=== PATIENT | female | born 1950 | race Native Hawaiian/Other Pacific Islander ===

== ENCOUNTER 2022-03-01 09:50 | Outpatient (CLI) | payer MEDICARE, MEDICAID, SELFPAY ==
--- NOTE | 2022-03-01 10:15 | CRLHL7_ITS ---
For Patients: As a result of the Century Cures Act, medical imaging exams and procedure reports are released immediately into your electronic medical record. You may view this report before your referring provider. If you have questions, please contact your health care provider. Technique: Double-contrast esophagram performed after the uneventful administration of effervescent crystals and thick barium followed by thin barium. Fluoroscopy time 1 minutes 11 seconds. Indication: Dysphagia Comparison: 12/29/2020 Findings: Postoperative changes of hiatal hernia repair and Robson fundoplication again noted. Swallowing mechanism is normal. Normal esophageal mucosal pattern. No evidence of achalasia. There is a persistent outpouching of the proximal stomach adjacent to the GE junction measuring 2.0 x 2.5 cm. This is not significantly changed from the prior study. Mild esophageal dysmotility and moderate gastroesophageal reflux. Impression: Persistent hernia adjacent to the GE junction without obstruction. Moderate spontaneous reflux and mildly decreased esophageal motility. Dictated by Alex Martinez MD @ 03/01/2022 11:08:18 AM (Electronically Signed)
== END 2022-03-01 09:51 | disposition home or self-care (01) ==
LOC: RAD 09:52
PROVIDERS: PCP Physician Assistant; Visit Provider Specialist
DX: R13.10 Dysphagia, unspecified (principal); K44.9 Diaphragmatic hernia without obstruction or gangrene; K21.9 Gastro-esophageal reflux disease without esophagitis; R11.10 Vomiting, unspecified; Z98.890 Other specified postprocedural states
CPT/HCPCS: 74221

== ENCOUNTER 2023-07-09 09:41 | Outpatient (CLI) | payer MEDICARE, MEDICAID, SELFPAY ==
--- NOTE | 2023-07-09 10:00 | CRLHL7_ITS ---
For Patients: As a result of the Century Cures Act, medical imaging exams and procedure reports are released immediately into your electronic medical record. You may view this report before your referring provider. If you have questions, please contact your health care provider. INDICATION: Neck pain. TECHNIQUE: Noncontrast axial CT of the cervical spine with coronal and sagittal reformats are provided. COMPARISON: Correlated with cervical spine radiographs dated 10/06/2018. FINDINGS: Postsurgical changes of C6-C7 anterior hardware fusion and intervertebral disc spacer placement. Hardware appears intact without evidence of loosening or failure. Straightening of the normal cervical lordosis. Posterior aspects of the vertebral bodies are aligned. No lytic or blastic lesion is identified. The paraspinal soft tissues are unremarkable. Evaluation of the individual levels demonstrates: C2-C3: No significant spinal canal or neural foraminal stenosis. C3-C4: No significant spinal canal or right neural foraminal narrowing. Mild right and moderate-severe left neural foraminal narrowing resulting from combined uncovertebral and facet joint hypertrophy. C4-C5: No significant spinal canal stenosis. Mild bilateral neural foraminal narrowing resulting predominantly from uncovertebral spurring. C5-C6: No significant spinal canal stenosis. Mild bilateral neural foraminal narrowing resulting predominantly from uncovertebral spurring. C6-C7 and C7-T1: No significant spinal canal or neural foraminal stenosis. IMPRESSION: 1. Postsurgical changes of C6-C7 anterior hardware fusion and intervertebral disc spacer placement. Hardware appears intact without evidence of loosening or failure. 2. No high-grade spinal canal stenosis. 3. At C3-C4, moderate-severe left neural foraminal narrowing. Please note that all CT scans at this facility use dose modulation, iterative reconstruction, and/or weight-based dosing when appropriate to reduce radiation dose to as low as reasonably achievable. Dictated by Srini Malik MD @ 07/09/2023 1:56:06 PM (Electronically Signed)
--- NOTE | 2023-07-09 10:30 | CRLHL7_ITS ---
For Patients: As a result of the Century Cures Act, medical imaging exams and procedure reports are released immediately into your electronic medical record. You may view this report before your referring provider. If you have questions, please contact your health care provider. Indication: Cervicalgia TECHNIQUE: Cervical spine with flexion and extension 4 view Comparison: December 26, 2021 Findings: Bones: Alignment is normal. No sign of abnormal motion on flexion and extension views. No fractures or significant bone lesions. Joints: Unremarkable interbody and anterior hardware fusion of C6-7. Otherwise unremarkable. Soft tissues: Unremarkable. Impression: Unremarkable cervical spine including hardware fusion of C6-7. No new or specific finding to explain neck pain. Dictated by Armando Hairston MD @ 07/10/2023 2:49:07 PM (Electronically Signed)
== END 2023-07-09 09:42 | disposition home or self-care (01) ==
PROVIDERS: PCP Physician Assistant; Visit Provider Orthopaedic Surgery Orthopaedic Surgery of the Spine
DX: M54.2 Cervicalgia (principal); M50.21 Other cervical disc displacement, high cervical region
CPT/HCPCS: 72050; 72125

== ENCOUNTER 2023-10-22 12:01 | Inpatient (IN) | payer MEDICARE, MEDICAID, SELFPAY ==
[2023-10-22] VITALS (29 sets, daily range): BP systolic 125–194; BP diastolic 77–125; PULSE 85–133; RESP 20–31; TEMP 35.8–36.6; O2SAT 90–98; BMI 31.9; BMI 29.5
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
--- NOTE | 2023-10-22 12:41 | CT_ITS ---
Patient: JOSE JERRY Facility:?[facility] Patient ID:?[id number] Site Patient ID:?[id number]. Site :?[id number] Study:?CT-Chest PE 95CC ISOVUE 370-10/22/2023 2:51:12 PM Ordering Physician:?DR. ESTEVES Final Report: Indication: POST OP C SPINE SURG. 09/27/23. DYSPNEA, MILD HYPOXIA Technique: CTA chest, pulmonary embolism protocol, utilizing 95 mL Isovue 370 Comparison: None Findings: No appreciable thyroid nodules. No pathologically enlarged lymph nodes throughout the thorax. The heart is normal in size without significant pericardial effusion. Right ventricular enlargement. LAD calcifications/stenting. The thoracic aorta and pulmonary artery are normal in caliber. Extensive pulmonary emboli to include the distal right pulmonary artery and segmental arteries of the right upper, middle, and lower lobes. Additional pulmonary emboli involving the distal left pulmonary artery and the segmental arteries of the left upper and left lower lobes. No focal airspace consolidation, pleural effusion, or pneumothorax. Faint mosaic attenuation of the lung parenchyma which can be seen with air trapping. No suspicious pulmonary nodules or masses. The airways are patent. The visualized upper abdomen is without acute process. Small to moderate hiatal hernia. Partially visualized lower cervical ACDF hardware. Otherwise, the soft tissues and osseous structures are unremarkable. Impression: 1. Multiple bilateral pulmonary emboli to include the distal left and right pulmonary arteries and segmental arteries of the bilateral lungs. 2. Right ventricular enlargement, suggestive of right heart strain. Findings were discussed with Dr. Esteves by Dr. Iqbal at 3:20 p.m. central standard time on 10/22/2023 Please note that all CT scans at this facility use dose modulation, iterative reconstruction, and/or weight-based dosing when appropriate to reduce radiation dose to as low as reasonably achievable. Dictated by Dayday Iqbal MD @ 10/22/2023 3:22:44 PM Signed by:?Dayday Iqbal MD @10/22/2023 3:22:44 PM (Electronic Signature)
[2023-10-22] MEDS: diphenhydrAMINE 50 MG/ML inj IVP (13:01)
[2023-10-22 13:11] LABS: HCO3 VBG 20 mmol/L (21-28); PCO2 VBG 27 mmHG (40-50); PO2 VBG 57.2 mmHG (25-47); pH VBG 7.478 (7.32-7.43)
[2023-10-22 13:12] LABS: Basophils Absolute Auto 0.01 K/uL (0.00-0.30); Basophils Percent Auto 0.1 % (0.0-3.0); Eosinophils Absolute Auto 0.08 K/uL (0.00-0.50); Hemoglobin* 13.1 gm/dL (12.0-16.0); Immature Granulocytes Abs Auto 0.03 K/uL (0.00-0.30); Immature Granulocytes Pct Auto 0.4 %; Lymphocytes Absolute Auto 1.65 K/uL (0.90-2.90); Lymphocytes Percent Auto 21.3 % (20-44); Mean Corpuscular HGB Conc 33 gm/dL (32-36); Mean Corpuscular Hemoglobin 31 pg (26-34); Mean Corpuscular Volume 94 fL (80-100); Monocytes Percent Auto 7.3 % (0.0-11.0); Neutrophils Absolute Auto 5.42 K/uL (1.7-7.0); Neutrophils Percent Auto 69.9 % (42.0-72.0); Platelet Count* 297 K/uL (140-440); RDW Coefficient of Variation % 13.2 % (11.5-15.5); Red Blood Count 4.26 m/uL (4.00-5.20); White Blood Count* 7.76 K/uL (4.50-11.00)
[2023-10-22] MEDS: HYDROCORTISONE SOD SUCCINATE 50 MG/ML inj 200 MG IVP (13:13)
[2023-10-22 13:15] LABS: Slide Review Reflex No
[2023-10-22 13:28] LABS: Troponin, Point-of-Care* 0.14 ng/ml (0.01-0.04)
[2023-10-22 13:28] LABS: Chloride* 109 mmol/L (96-114); Potassium* 4.3 mmol/L (3.6-5.1); Sodium* 137 mmol/L (135-149)
[2023-10-22] MEDS: 0.9 % SODIUM CHLORIDE 500 ML 500 ML IV (13:28)
[2023-10-22] MEDS: TRAMADOL HCL 50 MG TABLET 100 MG PO (13:28)
[2023-10-22 13:31] LABS: Creatinine* 0.6 mg/dL (0.5-1.5); Est. Creatinine Clearance* 42.68; Estimated Glomerular Filt Rate 96 ml/min
[2023-10-22 13:32] LABS: Anion Gap 9 mEq/L (7-15); Blood Urea Nitrogen* 14 mg/dL (7-30); Calcium* 9.8 mg/dL (8.4-10.6); Carbon Dioxide* 19 mmol/L (20-32); Glucose* 159 mg/dL (60-115)
[2023-10-22 13:46] LABS: D Dimer Quantitative* 5.39 ug/ml (0.00-0.50); NT Pro B Type NatriureticPept* 5370 pg/mL
[2023-10-22 13:47] LABS: Troponin I* 0.13 ng/mL (0.01-0.04)
[2023-10-22 14:00] LABS: SARS PCR* Negative SARS-CoV-2 (Negative)
[2023-10-22 14:01] LABS: PCR FLU A Negative PCR FLU A (Negative); PCR FLU B Negative PCR FLU B (Negative); PCR RSV Negative PCR RSV (Negative)
[2023-10-22 15:23] LABS: Troponin, Point-of-Care* 0.14 ng/ml (0.01-0.04)
--- NOTE | 2023-10-22 16:50 | P.IMHP_ITS ---
Hospitalist- H&P: HPI History of Present Illness Date Seen: 10/22/23 Chief complaint: trouble breathing Narrative: Mally Foster is a 73 year old female who presented to the ED with a 3 day history of dyspnea on exertion. She recently had surgery; an anterior cervical decompression/fusion of C3-C6 on 09/27/23 at [facility]. She had been doing well until this past weekend, when she felt more tired than usual with dyspnea with any type of activity, no cough. ER Course and findings: - elevated d-dimer, CTA revelaed multiple B PEs including distal L/R pulmonary arteries and bilateral segmental arteries with R ventricular enlargement - tachycardia on arrival (120s), HR improved ot 80s upon arrival to the floor - no hypotension, + tachycardia - bedside TTE prior to admission revealed elevated R heart pressures, dilated IVC, mildly decreased RV function, formal Cardiology read pending Histories updated below. PCP is Maryan Gallagher at the [facility]. Review of Systems Status of ROS: Reports: 10 or more systems reviewed and unremarkable except as noted in History and below Narrative: - known hiatal hernia recurrence (s/p Robson x2), symptomatic GERD - no vomiting or melena, + constipation since surgery - no chest pain or palpitations - large area of matted hair postoperatively, would prefer to have this conditioned/combed out, rather than cut [facility] Medical History (Updated 10/22/23 @ 19:09 by Bisi Haas MD) Pre-diabetes ?R73.03 - Prediabetes (ICD-10) Thoracic outlet syndrome ?G54.0 - Brachial plexus disorders (ICD-10) Degenerative disc disease SHARDA (obstructive sleep apnea) ?G47.33 - Obstructive sleep apnea (adult) (pediatric) (ICD-10) 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 ?M23.304 - Other meniscus derangements, unspecified medial meniscus, left knee (ICD-10) Osteoarthritis of knees, bilateral ?M17.0 - Bilateral primary osteoarthritis of knee (ICD-10) Hiatal hernia ?K44.9 - Diaphragmatic hernia without obstruction or gangrene (ICD-10) Hypertension ?I10 - Essential (primary) hypertension (ICD-10) High cholesterol ?E78.00 - Pure hypercholesterolemia, unspecified (ICD-10) Surgical History (Updated 10/22/23 @ 16:15 by Bisi Haas MD) Status post Robson fundoplication ?Z98.890 - Other specified postprocedural states (ICD-10) S/P cholecystectomy ?Z90.49 - Acquired absence of other specified parts of digestive tract (ICD- 10) H/O hernia repair ?Z98.890 - Other specified postprocedural states (ICD-10) ?Z87.19 - Personal history of other diseases of the digestive system (ICD-10) H/O heart artery stent ?Z95.5 - Presence of coronary angioplasty implant and graft (ICD-10) Social History (Updated 10/22/23 @ 19:11 by Bisi Haas MD) Narrative: Lives in [place]. Son Severiano would be MDM if needed. Nonsmoker, rare ETOH. Requests Full Code status for one try, does not desire prolonged resuscitation attempts. What is your current living situation?: I presently have a place to live Problems where you live: no known problems Problems where you live details: N/A In the past 12 months, utilities in danger of being shut off: no In past 12 months, lack of transportation kept you from medical appts, meetings, work, or getting things needed for daily living: no In the past 12 mos, have been you worried that your food would run out before yo u had money to buy more?: sometimes true In the past 12 mos, the food you bought just didn't last and you didn't have money to buy more?: sometimes true Highest level of school completed/degree received: 9th grade Smoking Status: Never smoker Do you use any of these nicotine containing products: None How often do you have a drink containing alcohol: never AUDIT-C Alcohol total score: 0 Non-prescribed substance use: denies use Caffeine: Yes (1-2 weekly) How often does anyone, including family, friends and others, physically hurt you : never How often does anyone, including family, friends and others, insult or talk down to you: never How often does anyone, including family, friends and others, threaten you with harm: never How often does anyone, including family, friends and others, scream or curse at you: never service: No Meds Home Medications and Allergies Home Medications Medication Instructions Recorded Confirmed Type losartan 100 mg tablet 100 mg PO DAILY 05/04/22 10/22/23 History nitroglycerin 0.4 mg sublingual 0.4 mg sublingual Q5M PRN chest 05/04/22 10/22/23 History tablet pain pantoprazole 40 mg tablet,delayed 40 mg PO DAILY PRN 05/04/22 10/22/23 History release simvastatin 20 mg tablet 20 mg PO HS 05/04/22 10/22/23 History tramadol 50 mg tablet 50 mg PO Q6H PRN 07/17/22 10/22/23 History acetaminophen 500 mg tablet 500 - 1,000 mg PO Q6H PRN 10/22/23 10/22/23 History albuterol sulfate 90 mcg/actuation 1 - 2 puff inhalation Q4H PRN 10/22/23 10/22/23 History aerosol inhaler (Ventolin HFA) wheezing furosemide 20 mg tablet 20 mg PO DAILY PRN edema 10/22/23 10/22/23 History hydrocodone 5 mg-acetaminophen 325 1 tab PO BID PRN severe pain 10/22/23 10/22/23 History mg tablet Allergies Allergy/AdvReac Type Severity Reaction Status Date / Time atorvastatin Allergy Verified 10/22/23 14:51 Iodinated Contrast Media Allergy Verified 10/22/23 14:51 isosorbide Allergy Verified 10/22/23 14:51 lisinopril Allergy Verified 10/22/23 14:51 Exam Narrative: Exam Narrative: GEN: Alert, 4-5 word dyspnea, nontoxic HEENT: Normal external ears, EOMIs bilaterally, no scleral icterus CV: Sinus tachycardia, no concerning murmurs R: Intermittent tachypnea while talking, no hypoxia. LCTA bilaterally without concerning wheezing, air movement adequate Ext: wwp, no concerning edema Skin: No concerning skin lesions or rashes on exposed skin Neuro: No focal deficits, no resting tremor, gait not observed Psych: Appropriate Const: Vital Signs, click to edit/add: Vital Signs - 24 hr 10/22/23 12:04 10/22/23 12:16 10/22/23 12:17 Temperature 96.9 F L Pulse Rate 121 H 122 H Pulse Rate [Pulse Oximeter] 123 H Respiratory Rate 28 H Blood Pressure 142/92 H Blood Pressure [Ri ght Upper Arm] 131/87 Pulse Oximetry 96 94 92 Oxygen Delivery Me thod Room Air Oxygen Flow Rate 10/22/23 12:30 10/22/23 13:05 10/22/23 13:15 Temperature Pulse Rate 123 H 129 H 123 H Pulse Rate [Pulse Oximeter] Respiratory Rate Blood Pressure Blood Pressure [Ri ght Upper Arm] Pulse Oximetry 94 93 90 Oxygen Delivery Me thod Oxygen Flow Rate 10/22/23 13:30 10/22/23 13:32 10/22/23 13:42 Temperature Pulse Rate 122 H 122 H Pulse Rate [Pulse Oximeter] Respiratory Rate Blood Pressure 132/98 H Blood Pressure [Ri ght Upper Arm] Pulse Oximetry 91 95 94 Oxygen Delivery Me thod Nasal Cannula Nasal Cannula Nasal Cannula Oxygen Flow Rate 0.5 0.5 0.5 10/22/23 13:45 10/22/23 14:00 10/22/23 14:02 Temperature Pulse Rate 117 H 118 H 116 H Pulse Rate [Pulse Oximeter] Respiratory Rate Blood Pressure 130/99 H Blood Pressure [Ri ght Upper Arm] Pulse Oximetry 94 94 95 Oxygen Delivery Me thod Nasal Cannula Nasal Cannula Nasal Cannula Oxygen Flow Rate 0.5 0.5 0.5 10/22/23 14:15 10/22/23 14:30 10/22/23 14:32 Temperature Pulse Rate 127 H 118 H Pulse Rate [Pulse Oximeter] Respiratory Rate 27 H Blood Pressure 133/88 Blood Pressure [Ri ght Upper Arm] Pulse Oximetry 96 95 Oxygen Delivery Me thod Nasal Cannula Nasal Cannula Nasal Cannula Oxygen Flow Rate 0.5 0.5 0.5 10/22/23 14:45 10/22/23 15:00 10/22/23 15:15 Temperature Pulse Rate 133 H 121 H 121 H Pulse Rate [Pulse Oximeter] Respiratory Rate 26 H 24 Blood Pressure Blood Pressure [Ri ght Upper Arm] Pulse Oximetry 94 94 94 Oxygen Delivery Me thod Nasal Cannula Nasal Cannula Nasal Cannula Oxygen Flow Rate 0.5 1.0 1.0 10/22/23 15:30 10/22/23 15:32 10/22/23 15:45 Temperature Pulse Rate 120 H 121 H 119 H Pulse Rate [Pulse Oximeter] Respiratory Rate 31 H 27 H 25 H Blood Pressure 126/100 H Blood Pressure [Ri ght Upper Arm] Pulse Oximetry 96 95 94 Oxygen Delivery Me thod Nasal Cannula Nasal Cannula Nasal Cannula Oxygen Flow Rate 1 1 1 10/22/23 16:00 10/22/23 16:07 Temperature Pulse Rate 118 H Pulse Rate [Pulse Oximeter] 85 Respiratory Rate 28 H 20 Blood Pressure Blood Pressure [Ri ght Upper Arm] 194/125 H Pulse Oximetry 94 98 Oxygen Delivery Me thod Nasal Cannula Room Air Oxygen Flow Rate 1 Hospitalist - H&P: Result Labs Labs: Short CBC 10/22/23 Range/Units 13:00 WBC 7.76 (4.50-11.00) K/uL Hgb 13.1 (12.0-16.0) gm/dL Hct 40.0 (33.0-51.0) % Plt Count 297 (140-440) K/uL BMP 10/22/23 13:00 Sodium 137 Potassium 4.3 Chloride 109 Carbon Dioxide 19 L BUN 14 Creatinine 0.6 Glucose 159 H Calcium 9.8 Cardiac Enzymes 10/22/23 Range/Units 13:00 Troponin I 0.13 H* (0.01-0.04) ng/mL Assessment and Plan Assessment and plan (1) Pulmonary emboli: Problem comment: - bilateral, noted on CT 10/21 - + RV enlargement on CTA and TTE with mildly decreased RV function, + tachycardia (appears to have mild dehydration as well), no hypotension - reviewed with Dr. Bob at [facility]; no acute intervention or transfer needed at this time, but will admit to CCU on heparin GTT - formal TTE results pending Status: Acute (2) Acute respiratory failure with hypoxia: Problem comment: - required low dose supplemental oxygen in ED, resolved by arrival to the floor - close monitoring, continue supplemental oxygen as needed Status: Acute (3) Elevated troponin: Problem comment: - likely demand ischemia from PEs/tachycardia, follow troponin to peak - await formal TTE results Status: Acute (4) Hypertension: Problem comment: - continue home Losartan dosing, monitor closely and avoid hypotension Status: Acute Plan - per above - kamini Severiano updated by phone, questions answered
[2023-10-22] MEDS: 0.9 % SODIUM CHLORIDE 1000 ml 1,000 ML 500 ML IV (18:20)
[2023-10-22] MEDS: ACETAMINOPHEN 325 MG TABLET 975 MG PO (18:20)
[2023-10-22] MEDS: HEPARIN 25,000 UNIT/500 ML BAG 27 UNIT IV (18:28)
[2023-10-22] MEDS: HEPARIN 5,000 UNIT/0.5 ML INJ 6500 UNIT IVP (18:29)
[2023-10-22 18:40] LABS: INR 1.12 (0.91-1.10); Partial Thromboplastin Time* 28 Seconds (23-33); Prothrombin Time 15.1 Seconds
--- NOTE | 2023-10-22 19:49 | PC.NURSE ---
End of shift-- Very pleasant and cooperative patient arrived from ED via cart at approximately 1645. Pt hypertensive, tachycardic and tachypneic but stable. Afebrile. SPO2 92-97% on RA. She denied nausea and tolerated a regular diet without difficulty. She was up to BR with SBA and tolerated it fair. Pt did become very SOB with exertion and RR increased to 30s but she did recover fairly quickly. Pt underwent echo at bedside upon arrival and tolerated it well. Report to RAVI Carroll.
[2023-10-22] MEDS: 0.9 % SODIUM CHLORIDE 1000 ml 1,000 ML 125 ML IV (20:10)
[2023-10-22] MEDS: SIMVASTATIN 20 MG TABLET PO (21:55)
[2023-10-22] MEDS: TRAMADOL HCL 50 MG TABLET PO (23:00)
[2023-10-23] VITALS (9 sets, daily range): BP systolic 121–146; BP diastolic 73–90; PULSE 87–108; RESP 16–26; TEMP 35.9–36.6; O2SAT 94–96
[2023-10-23] MEDS: LORazepam 0.5 MG TABLET PO (00:57)
[2023-10-23 01:21] LABS: Partial Thromboplastin Time* > 180 Seconds (23-33)
--- NOTE | 2023-10-23 01:58 | PC.NURSE ---
Received critical lab >180 PTT. Alexis THOMAS ([facility]) updated. Verbal orders received to follow Heparin protocol and consult with remote pharmacy regarding the PTT redraw time. Remote pharmacy consulted. Redraw time confirmed to be 6 hours after restarting Heparin drip. New rate confirmed to be 1125 units/hour.
[2023-10-23] MEDS: 0.9 % SODIUM CHLORIDE 1000 ml 1,000 ML 125 ML IV ×2 (03:46→11:40)
--- NOTE | 2023-10-23 05:57 | PC.NURSE ---
[id number]: Patient pleasant and cooperative. A&Ox3. A1/walker. Marked SOB w/activity. HR started in the 120's and decreased to the 90's mid-shift. O2 sats >90% RA. Rates pain 5-9/10 on neck. PRN medications administered for relief. Steri strips to L. anterior neck C/D/I. 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
[2023-10-23 06:22] LABS: HCO3 VBG 21 mmol/L (21-28); PCO2 VBG 30 mmHG (40-50); PO2 VBG 50.5 mmHG (25-47); pH VBG 7.453 (7.32-7.43)
[2023-10-23 06:28] LABS: Basophils Absolute Auto 0.01 K/uL (0.00-0.30); Basophils Percent Auto 0.1 % (0.0-3.0); Eosinophils Absolute Auto 0.01 K/uL (0.00-0.50); Eosinophils Percent Auto 0.1 % (0.0-7.0); Hematocrit 33.1 % (33.0-51.0); Hemoglobin* 10.6 gm/dL (12.0-16.0); Immature Granulocytes Abs Auto 0.02 K/uL (0.00-0.30); Immature Granulocytes Pct Auto 0.3 %; Lymphocytes Absolute Auto 1.96 K/uL (0.90-2.90); Lymphocytes Percent Auto 25.7 % (20-44); Mean Corpuscular HGB Conc 32 gm/dL (32-36); Mean Corpuscular Hemoglobin 31 pg (26-34); Mean Corpuscular Volume 96 fL (80-100); Monocytes Percent Auto 8.5 % (0.0-11.0); Neutrophils Absolute Auto 4.99 K/uL (1.7-7.0); Neutrophils Percent Auto 65.3 % (42.0-72.0); Platelet Count* 236 K/uL (140-440); RDW Coefficient of Variation % 13.6 % (11.5-15.5); Red Blood Count 3.46 m/uL (4.00-5.20); White Blood Count* 7.64 K/uL (4.50-11.00)
[2023-10-23 06:31] LABS: Slide Review Reflex No
[2023-10-23 06:39] LABS: Albumin* 2.9 g/dL (3.3-5.0); Chloride* 111 mmol/L (96-114)
[2023-10-23 06:40] LABS: Sodium* 136 mmol/L (135-149)
[2023-10-23 06:42] LABS: Anion Gap 5 mEq/L (7-15); Aspartate Amino Transferase* 30 U/L (12-35); Bilirubin Total* 0.2 mg/dL (0.1-1.5); Blood Urea Nitrogen* 14 mg/dL (7-30); Carbon Dioxide* 20 mmol/L (20-32); Creatinine* 0.5 mg/dL (0.5-1.5); Est. Creatinine Clearance* 42.68; Estimated Glomerular Filt Rate 100 ml/min; Total Protein* 5.6 g/dL (6.0-8.3)
[2023-10-23 06:43] LABS: Alanine Aminotransferase* 22 U/L (4-35); Alkaline Phosphatase* 83 U/L (40-150); Calcium* 8.6 mg/dL (8.4-10.6); Glucose* 142 mg/dL (60-115)
[2023-10-23 07:08] LABS: Troponin I* 0.07 ng/mL (0.01-0.04)
[2023-10-23] MEDS: LOSARTAN POTASSIUM 50 MG TABLET 100 MG PO (08:29)
[2023-10-23] MEDS: ACETAMINOPHEN 325 MG TABLET 975 MG PO (08:29)
[2023-10-23] MEDS: SODIUM CHLORIDE 0.9 % (FLUSH) 10 ML SYRINGE 5 ML IVF ×2 (08:31→20:40)
[2023-10-23 09:24] LABS: Partial Thromboplastin Time* > 180 Seconds (23-33)
--- NOTE | 2023-10-23 10:26 | PM.IMPN1 ---
Progress Note: A&P Assessment and plan (1) Pulmonary emboli: Problem details: - bilateral, noted on CT 10/21 - + RV enlargement on CTA and TTE with mildly decreased RV function, + tachycardia (appears to have mild dehydration as well), no hypotension - echo shows global systolic RV function severely reduced with sparing of RV apex consistent with acute pulmonary embolus. No stenosis or regurgitation of the aortic valve, moderately increased estimated pulmonary pressures, severely elevated right atrial pressure, septal flattening consistent with RV volume and pressure overload, EF 70-75%. - reviewed with Dr. Bob at [facility]; no acute intervention or transfer needed at this time, but will admit to CCU on heparin GTT 10/22: Transitioned to oral apixaban 10 mg b.i.d. x7 days, then 5 mg b.i.d. x3 months, total length of therapy to be determined by PCP Status: Acute (2) Acute respiratory failure with hypoxia: Problem details: - required low dose supplemental oxygen in ED, resolved by arrival to the floor - close monitoring, continue supplemental oxygen as needed, stable on room air - discussed dyspnea on exertion in setting of bilateral PE, slow resolution Status: Acute (3) Elevated troponin: Problem details: - likely demand ischemia from PEs/tachycardia, troponin flat, 0.07 (0.10 - 0.13) - TTE results as above Status: Acute (4) Hypertension: Problem details: - continue home Losartan dosing, monitor closely, no hypotension Status: Acute (5) Scalp pain: Problem details: - right-sided, patient has developed a large hair ball mass secondary to lack of grooming following surgery. Staff is going to attempt to loosen this though she may in the end need to have it cut out. Status: Acute Plan Likely discharge tomorrow pending continued clinical improvement Time Spent With Patient Total time spent: Total time spent caring for the patient today was 45 minutes. This includes time spent for the visit reviewing the chart, time spent during the visit, time spent after the visit and documentation and planning in coordination of care. Subjective Date Seen: 10/23/23 Interval history: Patient is seen with family at bedside this morning. Remains quite fatigued. Ambulating from bed to bathroom was exhausting. Continues with discomfort over right side of head/neck secondary to large hair mass that has formed secondary to lack of grooming since her surgery. Has otherwise remained afebrile. Tolerating orals without nausea vomiting. Exam Narrative: Exam Narrative: PHYSICAL EXAM General: Pleasant, conversant, NAD HEENT: Normocephalic, atraumatic, sclera white, EOMI, oral mucosa moist Cardiovascular: RRR, S1S2. No pitting edema Pulmonary: CTA bilaterally without rhonchi, rales, expiratory wheezes. No dyspnea Abdominal: Soft, nondistended, NTTP Neurological: Alert, answering questions appropriately, cranial nerves intact, no focal findings Extremities: No gross joint deformity or swelling. AROMI. Neurovascularly intact Skin: Warm, dry. Const: Vital Signs, click to edit/add: Vital Signs - 24 hr 10/22/23 12:04 10/22/23 12:16 10/22/23 12:17 Temperature 96.9 F L Pulse Rate 121 H 122 H Pulse Rate [Pulse Oximeter] 123 H Respiratory Rate 28 H Blood Pressure 142/92 H Blood Pressure [Le ft Arm] Blood Pressure [Ri ght Arm] Blood Pressure [Ri ght Upper Arm] 131/87 Pulse Oximetry 96 94 92 Oxygen Delivery Me thod Room Air Oxygen Flow Rate 10/22/23 12:30 10/22/23 13:05 10/22/23 13:15 Temperature Pulse Rate 123 H 129 H 123 H Pulse Rate [Pulse Oximeter] Respiratory Rate Blood Pressure Blood Pressure [Le ft Arm] Blood Pressure [Ri ght Arm] Blood Pressure [Ri ght Upper Arm] Pulse Oximetry 94 93 90 Oxygen Delivery Me thod Oxygen Flow Rate 10/22/23 13:30 10/22/23 13:32 10/22/23 13:42 Temperature Pulse Rate 122 H 122 H Pulse Rate [Pulse Oximeter] Respiratory Rate Blood Pressure 132/98 H Blood Pressure [Le ft Arm] Blood Pressure [Ri ght Arm] Blood Pressure [Ri ght Upper Arm] Pulse Oximetry 91 95 94 Oxygen Delivery Me thod Nasal Cannula Nasal Cannula Nasal Cannula Oxygen Flow Rate 0.5 0.5 0.5 10/22/23 13:45 10/22/23 14:00 10/22/23 14:02 Temperature Pulse Rate 117 H 118 H 116 H Pulse Rate [Pulse Oximeter] Respiratory Rate Blood Pressure 130/99 H Blood Pressure [Le ft Arm] Blood Pressure [Ri ght Arm] Blood Pressure [Ri ght Upper Arm] Pulse Oximetry 94 94 95 Oxygen Delivery Me thod Nasal Cannula Nasal Cannula Nasal Cannula Oxygen Flow Rate 0.5 0.5 0.5 10/22/23 14:15 10/22/23 14:30 10/22/23 14:32 Temperature Pulse Rate 127 H 118 H Pulse Rate [Pulse Oximeter] Respiratory Rate 27 H Blood Pressure 133/88 Blood Pressure [Le ft Arm] Blood Pressure [Ri ght Arm] Blood Pressure [Ri ght Upper Arm] Pulse Oximetry 96 95 Oxygen Delivery Me thod Nasal Cannula Nasal Cannula Nasal Cannula Oxygen Flow Rate 0.5 0.5 0.5 10/22/23 14:45 10/22/23 15:00 10/22/23 15:15 Temperature Pulse Rate 133 H 121 H 121 H Pulse Rate [Pulse Oximeter] Respiratory Rate 26 H 24 Blood Pressure Blood Pressure [Le ft Arm] Blood Pressure [Ri ght Arm] Blood Pressure [Ri ght Upper Arm] Pulse Oximetry 94 94 94 Oxygen Delivery Me thod Nasal Cannula Nasal Cannula Nasal Cannula Oxygen Flow Rate 0.5 1.0 1.0 10/22/23 15:30 10/22/23 15:32 10/22/23 15:45 Temperature Pulse Rate 120 H 121 H 119 H Pulse Rate [Pulse Oximeter] Respiratory Rate 31 H 27 H 25 H Blood Pressure 126/100 H Blood Pressure [Le ft Arm] Blood Pressure [Ri ght Arm] Blood Pressure [Ri ght Upper Arm] Pulse Oximetry 96 95 94 Oxygen Delivery Me thod Nasal Cannula Nasal Cannula Nasal Cannula Oxygen Flow Rate 1 1 1 10/22/23 16:00 10/22/23 16:07 10/22/23 17:27 Temperature 97.6 F Pulse Rate 118 H Pulse Rate [Pulse Oximeter] 85 130 H Respiratory Rate 28 H 20 24 Blood Pressure Blood Pressure [Le ft Arm] Blood Pressure [Ri ght Arm] 151/117 H Blood Pressure [Ri ght Upper Arm] 194/125 H Pulse Oximetry 94 98 96 Oxygen Delivery Me thod Nasal Cannula Room Air Room Air Oxygen Flow Rate 1 10/22/23 17:27 10/22/23 19:00 10/22/23 19:00 Temperature Pulse Rate 122 H Pulse Rate [Pulse Oximeter] 122 H Respiratory Rate 26 H 26 H Blood Pressure Blood Pressure [Le ft Arm] Blood Pressure [Ri ght Arm] Blood Pressure [Ri ght Upper Arm] Pulse Oximetry Oxygen Delivery Me thod Oxygen Flow Rate 10/22/23 19:52 10/22/23 21:31 10/22/23 22:57 Temperature 97.8 F 96.5 F L 96.5 F L Pulse Rate Pulse Rate [Pulse Oximeter] 124 H 117 H 112 H Respiratory Rate 26 H 24 24 Blood Pressure Blood Pressure [Le ft Arm] 131/89 125/84 130/77 Blood Pressure [Ri ght Arm] Blood Pressure [Ri ght Upper Arm] Pulse Oximetry 94 96 94 Oxygen Delivery Me thod Room Air Room Air Room Air Oxygen Flow Rate 10/22/23 23:00 10/22/23 23:00 10/22/23 23:00 Temperature Pulse Rate 114 H Pulse Rate [Pulse Oximeter] 112 H Respiratory Rate 24 24 Blood Pressure Blood Pressure [Le ft Arm] Blood Pressure [Ri ght Arm] Blood Pressure [Ri ght Upper Arm] Pulse Oximetry 94 Oxygen Delivery Me thod Room Air Oxygen Flow Rate 10/23/23 00:52 10/23/23 03:00 10/23/23 03:00 Temperature 96.6 F L Pulse Rate 99 Pulse Rate [Pulse Oximeter] 103 H 102 H Respiratory Rate 26 H 22 Blood Pressure Blood Pressure [Le ft Arm] 136/77 Blood Pressure [Ri ght Arm] Blood Pressure [Ri ght Upper Arm] Pulse Oximetry 94 Oxygen Delivery Me thod Room Air Oxygen Flow Rate 10/23/23 03:48 10/23/23 05:13 10/23/23 07:00 Temperature 96.7 F L 96.8 F L Pulse Rate 90 Pulse Rate [Pulse Oximeter] 102 H 89 Respiratory Rate 22 22 Blood Pressure Blood Pressure [Le ft Arm] 129/73 121/74 Blood Pressure [Ri ght Arm] Blood Pressure [Ri ght Upper Arm] Pulse Oximetry 94 94 Oxygen Delivery Me thod Room Air Room Air Oxygen Flow Rate 10/23/23 07:00 10/23/23 07:00 10/23/23 07:00 Temperature 97.1 F L Pulse Rate Pulse Rate [Pulse Oximeter] 87 87 Respiratory Rate 18 18 Blood Pressure Blood Pressure [Le ft Arm] 141/81 H Blood Pressure [Ri ght Arm] Blood Pressure [Ri ght Upper Arm] Pulse Oximetry 96 96 Oxygen Delivery Me thod Room Air Room Air Oxygen Flow Rate Labs Labs: Laboratory Results - last 24 hr 10/22/23 10/22/23 10/22/23 13:00 13:27 15:13 WBC 7.76 RBC 4.26 Hgb 13.1 Hct 40.0 MCV 94 MCH 31 MCHC 33 RDW Coeff of Debra 13.2 Plt Count 297 Neut % (Auto) 69.9 Lymph % (Auto) 21.3 [place] % (Auto) 7.3 Eos % (Auto) 1.0 Baso % (Auto) 0.1 Neut # (Auto) 5.42 Lymph # (Auto) 1.65 [place] # (Auto) 0.60 Eos # (Auto) 0.08 Baso # (Auto) 0.01 Abs Immat Gran (auto) 0.03 Imm/Tot Granulo (auto) 0.4 INR APTT D-Dimer Quant (PE/DVT) 5.39 H VBG pH 7.478 H VBG pCO2 27 L VBG pO2 57.2 H VBG HCO3 20 L Sodium 137 Potassium 4.3 Chloride 109 Carbon Dioxide 19 L Anion Gap 9 BUN 14 Creatinine 0.6 Estimated Creat Clear 42.68 Estimated GFR 96 Glucose 159 H Calcium 9.8 Magnesium Total Bilirubin AST ALT Alkaline Phosphatase Troponin I 0.13 H* C-Reactive Protein 1.0 NT-Pro-B Natriuret Pep 5370 Total Protein Albumin SARS-CoV-2 (PCR) Negative SARS-CoV-2 Influenza Type A (PCR) Negative PCR FLU A Influenza Type B (PCR) Negative PCR FLU B RSV (PCR) Negative PCR RSV POC Troponin I 0.14 H 0.14 H 10/22/23 10/23/23 10/23/23 18:16 00:45 06:09 WBC 7.64 RBC 3.46 L Hgb 10.6 L Hct 33.1 MCV 96 MCH 31 MCHC 32 RDW Coeff of Debra 13.6 Plt Count 236 Neut % (Auto) 65.3 Lymph % (Auto) 25.7 [place] % (Auto) 8.5 Eos % (Auto) 0.1 Baso % (Auto) 0.1 Neut # (Auto) 4.99 Lymph # (Auto) 1.96 [place] # (Auto) 0.60 Eos # (Auto) 0.01 Baso # (Auto) 0.01 Abs Immat Gran (auto) 0.02 Imm/Tot Granulo (auto) 0.3 INR 1.12 H APTT 28 > 180 H* D-Dimer Quant (PE/DVT) VBG pH 7.453 H VBG pCO2 30 L VBG pO2 50.5 H VBG HCO3 21 Sodium 136 Potassium 4.0 Chloride 111 Carbon Dioxide 20 Anion Gap 5 L BUN 14 Creatinine 0.5 Estimated Creat Clear 42.68 Estimated GFR 100 Glucose 142 H Calcium 8.6 Magnesium 2.0 Total Bilirubin 0.2 AST 30 ALT 22 Alkaline Phosphatase 83 Troponin I 0.10 H* 0.07 H* C-Reactive Protein NT-Pro-B Natriuret Pep Total Protein 5.6 L Albumin 2.9 L SARS-CoV-2 (PCR) Influenza Type A (PCR) Influenza Type B (PCR) RSV (PCR) POC Troponin I 10/23/23 08:30 WBC RBC Hgb Hct MCV MCH MCHC RDW Coeff of Debra Plt Count Neut % (Auto) Lymph % (Auto) [place] % (Auto) Eos % (Auto) Baso % (Auto) Neut # (Auto) Lymph # (Auto) [place] # (Auto) Eos # (Auto) Baso # (Auto) Abs Immat Gran (auto) Imm/Tot Granulo (auto) INR APTT > 180 H* D-Dimer Quant (PE/DVT) VBG pH VBG pCO2 VBG pO2 VBG HCO3 Sodium Potassium Chloride Carbon Dioxide Anion Gap BUN Creatinine Estimated Creat Clear Estimated GFR Glucose Calcium Magnesium Total Bilirubin AST ALT Alkaline Phosphatase Troponin I C-Reactive Protein NT-Pro-B Natriuret Pep Total Protein Albumin SARS-CoV-2 (PCR) Influenza Type A (PCR) Influenza Type B (PCR) RSV (PCR) POC Troponin I
[2023-10-23] MEDS: APIXABAN 5 MG TABLET 10 MG PO ×2 (10:33→20:39)
[2023-10-23] MEDS: TRAMADOL HCL 50 MG TABLET PO ×2 (13:40→17:35)
--- NOTE | 2023-10-23 14:33 | PC.NURSE ---
End of shift [id number]: Pt A&O, afebrile and VSS this shift. She is SBA with 2ww and gait belt for transfers and ambulation. Pt reports significant SOB with exertion & ambulation but O2 maintains > 90% on RA. Pt c/o pain and stiffness in neck r/t previous surgery & massive hair knot on right side of head. One of the staff members took some time to attempt to detangle patient?s hair without success. Pt received PRN Tylenol last @ 0830 and PRN Tramadol last @ 1340. Heparin gtt discontinued this AM @ 0925 and she was transitioned to PO Eliquis BID. PIV in left hand became dislodged so NS infusing @ 125 mL/hr in PIV in right AC. Left anterior neck steri-strips C/D/I and posterior neck incision line [employer]OURCE [employer]IST C/D/I. TELE reads ST today ranging from 80s-120s. Pt had x1 medium BM this morning. Family was here visiting for majority of the morning & POC planning was discussed. PT, OT and SW consults ordered for discharge planning & assess for home O2 needs. Planning for a 10/23 discharge home. ?
[2023-10-23] MEDS: hydrOXYzine pamoate 25 MG CAPSULE PO (17:35)
--- NOTE | 2023-10-23 18:54 | PC.NURSE ---
[id number]: The patient has tele in place sinus tachycardia. BP stable and O2 on RA at rest is 93-96%. Although, the patient does desaturates into the mid 70's when she is up and walking... Dr Haas was notified. The patient has medial neck incision with steri strips with no drainage. Posterior neck incision is open to air. The patient reported severe pain in her neck @ 8/10 PO tramadol and visceral were given this evening. The patient was up to the chair for dinner. Calls appropriately. Orders to Dc IV fluids were received this afternoon as well. Encouraged activity when she returns home to prevent future PE's. Will need home O2 assessment from respiratory.. Dr Haas ordered them to assess. Kalyani RODRIGUES BSN
[2023-10-23] MEDS: MORPHINE 4 MG/ML INJ IVP (20:38)
[2023-10-23] MEDS: LIDOCAINE 5% PATCH 1 PATCH TRANSDERMA (20:39)
[2023-10-23] MEDS: SIMVASTATIN 20 MG TABLET PO (20:39)
[2023-10-23] MEDS: 0.9 % SODIUM CHLORIDE 500 ML 500 ML IV (20:40)
[2023-10-24 03:00] VITALS: BP 123/74; PULSE 94; RESP 15; TEMP 36.2; O2SAT 94
[2023-10-24 06:24] LABS: Hematocrit 32.5 % (33.0-51.0); Hemoglobin* 10.1 gm/dL (12.0-16.0); Mean Corpuscular HGB Conc 31 gm/dL (32-36); Mean Corpuscular Hemoglobin 30 pg (26-34); Mean Corpuscular Volume 98 fL (80-100); Platelet Count* 212 K/uL (140-440); Red Blood Count 3.32 m/uL (4.00-5.20); White Blood Count* 6.58 K/uL (4.50-11.00)
[2023-10-24 06:50] LABS: Slide Review Reflex No
[2023-10-24 07:00] VITALS: BP 128/75; PULSE 71; PULSE 96; RESP 16; TEMP 36.4; O2SAT 96
--- NOTE | 2023-10-24 07:39 | PC.NURSE ---
End of shift [id number]: Alert and oriented x 4. Pain to right posterior neck radiating into right shoulder reported at 2015, no PRN medication available. Dr. Haas updated and new order for one time dose of morphine, medication administered and effective. Patient reporting pain at 3/10 throughout the night which was tolerable for patient. Denies any shortness of breath, patient able to maintain O2 sats >90% on room air. Transfers independently, SBA with walker for ambulation.
[2023-10-24] MEDS: APIXABAN 5 MG TABLET 10 MG PO (09:08)
[2023-10-24] MEDS: LOSARTAN POTASSIUM 50 MG TABLET 100 MG PO (09:09)
[2023-10-24] MEDS: SODIUM CHLORIDE 0.9 % (FLUSH) 10 ML SYRINGE 5 ML IVF (09:13)
[2023-10-24 11:00] VITALS: BP 148/82; PULSE 94; RESP 16; TEMP 36.6; O2SAT 97
--- NOTE | 2023-10-24 11:14 | P.DS_ITS ---
DS: Providers Provider Date Seen: 10/24/23 Date of admission: 10/22/23 17:25 Primary care physician: Maryan Gallagher PA-C Admitting Clinician: Bisi Haas MD Consults: 10/23/23 14:32 Consult to Occupational Therapy [CONS] Routine Comment: Reason(s) for OT Consult:: Evaluate and Treat Any Restrictions?:: No Restrictions Consult to Physical Therapy [CONS] Routine Comment: Reason(s) for PT Consult:: Evaluate and Treat Any Restrictions?:: No Restrictions Consult to Sales Clerk [CONS] Routine Comment: Reason for Consult:: Discharge Planning Needs 10/23/23 17:44 Consult to Respiratory Therapy [CONS] Routine Comment: Reason(s) for RT Consult:: Consult Comment: B PEs, hypoxia with activity Attending Physician on discharge: WILLIAN Woodard, MURRAY [place] [facility] Date of Discharge: 10/24/23 DS: Diagnosis Discharge Diagnosis (1) Pulmonary emboli: Status: Acute Problem details: Bilateral, noted on CT 10/21, + RV enlargement on CTA, mild tachycardia (appeared to have mild dehydration as well) significantly improved, intermittent prior to discharge, no hypotension. Remained hemodynamically stable. Echo shows global systolic RV function severely reduced with sparing of RV apex consistent with acute pulmonary embolus. No stenosis or regurgitation of the aortic valve, moderately increased estimated pulmonary pressures, severely elevated right atrial pressure, septal flattening consistent with RV volume and pressure overload, EF 70-75%. On admission, reviewed with Dr. Bob at [facility]; no acute intervention or transfer needed at this time, but will admit to CCU on heparin GTT. Following day, transitioned to oral apixaban 10 mg b.i.d. x7 days, then 5 mg b.i.d. x3 months, total length of therapy to be determined by PCP (2) Acute respiratory failure with hypoxia: Status: Acute Problem details: In setting of multiple bilateral PE. Initially requiring low-dose oxygen supplementation, weaned to room air. Saturations stable mid 90s at rest. Noted mild desaturations with activity, followed by quick recovery at rest into mid 90s saturations. Discussed dyspnea on exertion in setting of bilateral PE, slow resolution, frequent rests to recover. Respiratory therapy consulted, no acute supplemental oxygen needs. (3) Elevated troponin: Status: Acute Problem details: Suspected demand ischemia from PEs/tachycardia, troponin flat, 0.07 (0.10 - 0.13). TTE results as above. (4) Hypertension: Status: Acute Problem details: Continued home Losartan dosing. Remained hemodynamically stable. (5) Scalp pain: Status: Acute Problem details: Right-sided, patient has developed a large hair ball mass, which is heavy causing strain on neck, secondary to lack of grooming following surgery. Staff attempted to relieve some of knot through different methods, however patient will likely need to have this cut out. She has a friend that could do it this afternoon or over the weekend. (6) S/P cervical spinal fusion: Status: Acute Problem details: Anterior cervical decompression/fusion of C3-C6 on 09/27/2023. Remains in neck brace when out of bed. Pain adequately managed. DS: Summary Hospital Course Hospital Course: [age] year old female past medical history significant for hypertension, prediabetes, status post anterior cervical decompression/fusion C3-C6 was admitted to the medical floor for management acute bilateral pulmonary emboli, hemodynamically stable. Course of care and details as noted above. Patient admitted on heparin drip, hemodynamic stable, after reaching out to [facility] recommending local cares without need for surgical intervention. Transitioned to oral apixaban. Assessed by RT, PT and OT. Discharged to home with close outpatient follow-up with PCP. Remainder of chronic medical comorbidities were monitored and managed with home medications. Status at Discharge Functional status at discharge: uses cane/walker Overall status at discharge: patient is progressing back to baseline Time Spent with Patient Time attestation: Total time spent providing and/or coordinating discharge services: Time spent: Greater than 30 minutes Exam Narrative: Exam Narrative: PHYSICAL EXAM General: Pleasant, conversant, NAD Cardiovascular: RRR. No pitting edema Pulmonary: No dyspnea on room air Neurological: Alert, answering questions appropriately Skin: Warm, dry. Const: Vital Signs, click to edit/add: Vital Signs - 24 hr 10/23/23 15:00 10/23/23 15:00 10/23/23 15:00 Temperature 97.9 F Pulse Rate 107 H Pulse Rate [Pulse Oximeter] 100 Respiratory Rate 22 Blood Pressure [Le ft Arm] Blood Pressure [Ri ght Arm] 137/78 Pulse Oximetry 96 96 Oxygen Delivery Me thod Room Air Room Air Oxygen Flow Rate 10/23/23 19:00 10/23/23 23:00 10/23/23 23:00 Temperature 97.6 F Pulse Rate 96 Pulse Rate [Pulse Oximeter] 107 H 99 Respiratory Rate 18 18 Blood Pressure [Le ft Arm] Blood Pressure [Ri ght Arm] 139/85 Pulse Oximetry 96 Oxygen Delivery Me thod Room Air Oxygen Flow Rate 10/23/23 23:00 10/23/23 23:00 10/24/23 03:00 Temperature 97.7 F 97.1 F L Pulse Rate Pulse Rate [Pulse Oximeter] 99 94 Respiratory Rate 16 16 15 Blood Pressure [Le ft Arm] 123/74 Blood Pressure [Ri ght Arm] 138/88 Pulse Oximetry 95 95 94 Oxygen Delivery Me thod Room Air Room Air Room Air Oxygen Flow Rate 10/24/23 07:00 10/24/23 07:00 10/24/23 07:00 Temperature 97.6 F Pulse Rate Pulse Rate [Pulse Oximeter] 96 96 Respiratory Rate 16 16 16 Blood Pressure [Le ft Arm] 128/75 Blood Pressure [Ri ght Arm] Pulse Oximetry 96 96 Oxygen Delivery Me thod Room Air Room Air Oxygen Flow Rate 1 10/24/23 07:00 Temperature Pulse Rate 71 Pulse Rate [Pulse Oximeter] Respiratory Rate Blood Pressure [Le ft Arm] Blood Pressure [Ri ght Arm] Pulse Oximetry Oxygen Delivery Me thod Oxygen Flow Rate DS: Data Data Completed and Pending Labs on day of discharge: Labs from last 24 hours 10/24/23 05:57 WBC 6.58 RBC 3.32 L Hgb 10.1 L Hct 32.5 L MCV 98 MCH 30 MCHC 31 L Plt Count 212 Discharge Plan Discharge Disposition: Home, Self-Care Date of Admission: 10/22/23 17:25 Attending Provider on Discharge: Serenity Blackburn Primary Care Provider: Maryan Gallagher Condition: Stable Anticipated Discharge Date/Time: 10/24/23 15:00 Discharge Medications: New Eliquis 5 mg Tablet 10 mg PO BID Qty: 90 0RF Rx Instructions: 10mg po bid (10/22-10/28) then 5mg po bid starting 10/30/23 Continued tramadol 50 mg tablet 50 mg PO Q6H PRN Patient Comments: TAKE 1 TABLET (50 MG) BY MOUTH EVERY 6 HOURS IF NEEDED FOR PAIN. acetaminophen 500 mg tablet 500 - 1,000 mg PO Q6H PRN hydrocodone-acetaminophen 5-325 mg tablet 1 tab PO BID PRN (Reason: severe pain) furosemide 20 mg tablet 20 mg PO DAILY PRN (Reason: edema) albuterol sulfate [Ventolin HFA] 90 mcg/actuation HFA aerosol inhaler 1 - 2 puff INHALATION Q4H PRN (Reason: wheezing) simvastatin 20 mg tablet 20 mg PO HS Patient Comments: TAKE 1 TABLET (20 MG) BY MOUTH AT BEDTIME. losartan 100 mg tablet 100 mg PO DAILY pantoprazole 40 mg tablet,delayed release (DR/EC) 40 mg PO DAILY PRN nitroglycerin 0.4 mg tablet, sublingual 0.4 mg sublingual Q5M PRN (Reason: chest pain) Discharge Orders: Discharge Order (Routine); Ordered 10/24/23 Ordered By: Serenity Blackburn Patient Education: Pulmonary Embolism (GEN) Additional Instructions: As discussed, you may continue to feel quite fatigued and short of breath, worse with ambulation/activity, while being treated for your pulmonary emboli. You will need to take frequent rests/breaks. Activity Level: Activity as Tolerated Discharge Diet: Regular Follow Up Appointments: Maryan Gallagher PA-C [Primary Care Provider] - 11/01/23 (Post hospital follow- up 5-7 days, pulmonary emboli) Forms: [facility] Info Instructions
--- NOTE | 2023-10-24 14:29 | PC.NURSE ---
Discharge: patient discharged today to home accompanied by friend at 1355. Patient's VSS, 97% on RA, tolerating a reg diet. Patient is NSR on Tele, denies N/V/pain. Patient SOB w/exertion and activity. Patient's IV removed intact, belongings sheet signed, and discharge instructions given and signed. Patient verbalized understanding.
== END 2023-10-24 13:55 | disposition home or self-care (01) | DRG 175 ==
LOC: ED 15:54 → MEDSURG 16:36
PROVIDERS: Internal Medicine; Physician Assistant; Admitting Provider Family Medicine; Emergency Provider Family Medicine; PCP Physician Assistant; Visit Provider Family Medicine
DX: I26.09 Other pulmonary embolism with acute cor pulmonale (principal); J96.01 Acute respiratory failure with hypoxia; R79.89 Other specified abnormal findings of blood chemistry; I10 Essential (primary) hypertension; Z98.1 Arthrodesis status; G47.33 Obstructive sleep apnea (adult) (pediatric); R51.9 Headache, unspecified; M54.2 Cervicalgia; Z95.5 Presence of coronary angioplasty implant and graft; R73.03 Prediabetes; E78.00 Pure hypercholesterolemia, unspecified
CPT/HCPCS: 36415; 71275; 80048; 80053; 82803; 83735; 83880; 84484; 85025; 85027; 85379; 85610; 85730; 86140; 87631; 93005; 93306; 97161; 97165; 97530; 99284; 99285; 99291; A9270; J1200; J1644; J1720; J2270; J7030; Q9967

== ENCOUNTER 2024-05-21 07:40 | Outpatient (CLI) | payer MEDICARE, MEDICAID, SELFPAY ==
--- OUTSIDE RECORDS SUMMARY | 2024-05-21 07:43 | XMS_ITS | Referral Summary ---
Author Organization [facility] Address [address] [place] [id number] Care Team Providers Care Base Filler Name Role Phone Maryan Gallagher PA-C Primary Care Provider [phone] Allergies Active Allergy Reactions Criticality Noted Date Comments Atorvastatin Muscle Pain (Myalgia) 04/09/2017 Iodinated Contrast Media Anaphylaxis High 10/22/2009 Isosorbide Nitrate Palpitations Low 04/24/2013 Lisinopril Cough 05/30/2016 Pravastatin Muscle Pain (Myalgia) 04/24/2013 Rosuvastatin Other (See Comments) 06/12/2017 Medications Medication Sig Dispensed Refills Start Date End Date Status simvastatin (ZOCOR) 20 MG tablet Take 1 tablet by mouth at bedtime 03/06/2023 Active losartan (COZAAR) 100 MG tablet Take 1 tablet by mouth daily 10/12/2022 Active furosemide (LASIX) 20 MG tablet Take 20 mg by mouth daily 08/16/2023 Active albuterol (VENTOLIN HFA) 108 (90 Base) MCG/ACT inhaler Inhale 1-2 puffs into the lungs every 4 hours as needed 03/04/2023 Active HYDROcodone-acetaminop hen (NORCO) 5-325 MG tablet Take 1 tablet by mouth 2 times daily as needed 01/29/2023 Active cholecalciferol 50 MCG (2000 UT) CAPS Take 2,000 Units by mouth daily 08/16/2023 Active fluticasone (FLONASE) 50 MCG/ACT nasal spray Doole 1-2 sprays in nostril daily as needed 2022 Active lidocaine (LIDODERM) 5 % patch Place onto the skin daily as needed 04/19/2022 Active nitroGLYcerin (NITROSTAT) 0.[address] 0.4 mg under the tongue every 5 minutes as needed 08/16/2023 Active oxyBUTYnin ER (DITROPAN XL) 10 MG 24 hr tablet Take 1 tablet by mouth daily 12/14/2022 Active pantoprazole (PROTONIX) 40 MG EC tablet Take 1 tablet by mouth daily as needed 10/09/2022 Active polyethylene glycol (MIRALAX) 17 GM/Dose powder Take 17 g by mouth daily as needed 06/21/2023 Active silver sulfADIAZINE (SILVADENE) 1 % external cream Apply topically daily as needed 01/04/2023 Active tiZANidine (ZANAFLEX) 2 MG tablet Take 2-4 mg by mouth 4 times daily as needed 04/11/2023 Active traMADol (ULTRAM) 50 MG tablet Take 50-100 mg by mouth 2 times daily 07/22/2023 Active celecoxib (CELEBREX) 200 MG capsule Take 200 mg by mouth 2 times daily as needed for moderate pain Active Active Problems Problem Noted Date Diagnosed Date H/O Spinal surgery 09/27/2023 Social History Tobacco Use Types Packs/Day Years Used Date Smoking Tobacco: Never Passive Smoke Exposure: Never Smokeless Tobacco: Never Alcohol Use Standard Drinks/Week Comments Not Currently 0 (1 standard drink = 0.6 oz pur e alcohol) Adolescent Education Answer Date Record ed Getting School Help Needed Not on file 08/29 Sex and Gender Information Value Date Recorded Sex Assigned at Not on file Gender Identity Not on file Sexual Orientation Not on file Last Filed Vital Signs Vital Sign Reading Time Taken Comments Blood Pressure 131/72 09/30/2023 7:30 AM RESIDENTIAL ROOFER Pulse 72 09/30/2023 7:30 AM RESIDENTIAL ROOFER Temperature 36.6 ??C (97.8 ??F) 09/30/2023 7:30 AM CS T Respiratory Rate 18 09/30/2023 7:30 AM RESIDENTIAL ROOFER Oxygen Saturation 94% 09/30/2023 7:30 AM RESIDENTIAL ROOFER Inhaled Oxygen Concentration - - Weight 80.6 kg (177 lb 9.6 oz) 09/27/2023 7:04 A M RESIDENTIAL ROOFER Height 153.5 cm (5' 0.43) 09/27/2023 7:04 AM CS T Body Mass Index 34.19 09/27/2023 7:04 AM RESIDENTIAL ROOFER Plan of Treatment Not on file Medical Devices Implanted Type Area Civil Engineering Specialist Device Identifier Shelf Expiration Date Model / Serial / Lot Implant Bone 0.5-1 M Bland-Tcp Sponge Gran-Collage n Composite - [id number] Implanted:Qt y: 1 on 09/27/2023 by Darrell Denson MD at [facility] Metallic Hardware/An chor N/A: Spine Cervical PRECISION SPINE [id number] 10/10/2027 AMWS-TCP -10 / [id number] / [id number] A Reduction Poly Axial Screws Mid-Top, 4.0mm X 28mm Implanted:Qt y: 2 on 09/27/2023 by Darrell Denson MD at [facility] Metallic Hardware/An chor N/A: Spine Cervical AMW SPINE [id number] 2022 Laci Spinal Castleloc-S Straight 200x3.5mm [id number] - [id number] Implanted:Qt y: 1 on 09/27/2023 by Darrell Denson MD at [facility] Metallic Hardware/An chor N/A: Spine Cervical AEGIS SPINE [id number] 2022 Description:Laci cut into two sections 3.5 X 14mm Standard Self Drilling Screws Implanted:Qt y: 6 on 09/27/2023 by Darrell Denson MD at [facility] Metallic Hardware/An chor N/A: Spine Cervical AMW SPINE 37-SD-40 8002 [id number] Plate Bn [id number] Ti Stndaln Vault C Ns Spne Acdf - [id number] Implanted:Qt y: 2 on 09/27/2023 by Darrell Denson MD at [facility] Metallic Hardware/An chor N/A: Spine Cervical PRECISION SPINE 37-PA-42 8002 [id number] Plate Bn [id number] Ti Vault C Spne Crv Ant Stnd 37-Pa-4209 - [id number] Implanted:Qt y: 1 on 09/27/2023 by Darrell Denson MD at [facility] Metallic Hardware/An chor N/A: Spine Cervical PRECISION SPINE 37-PA-42 8002 [id number] 14 X 120 X 8mm 0?? Posterior Cage Implanted:Qt y: 2 on 09/27/2023 by Darrell Denson MD at [facility] Metallic Hardware/An chor N/A: Spine Cervical AMW SPINE 37-CP-42 8202 [id number] Cage Spnl 14x9mm Vault C 0d 12mm Post Peek-Optm 37-Cp-4209 - [id number] Implanted:Qt y: 1 on 09/27/2023 by Darrell Denson MD at [facility] Metallic Hardware/An chor N/A: Spine Cervical PRECISION SPINE 37-CP-42 8202 [id number] Tap Spinal Lnk 12x3mm [id number] - [id number] Implanted:Qt y: 1 on 09/27/2023 by Darrell Denson MD at [facility] Metallic Hardware/An chor N/A: Spine Cervical AEGIS SPINE CX48-500 [id number] / / Screw Set Castleloc-S M7 Spine Posterior Cervical [id number] - [id number] Implanted:Qt y: 6 on 09/27/2023 by Darrlel Denson MD at [facility] Metallic Hardware/An chor N/A: Spine Cervical AEGIS SPINE [id number] 2022 Reduction Poly Axial Screws Mid-Top, 4.0mm X 14mm Implanted:Qt y: 4 on 09/27/2023 by Darrell Denson MD at [facility] Metallic Hardware/An chor N/A: Spine Cervical AMW SPINE [id number] Procedures Procedure Name Priority Date/Time Associated Diagnosis Comments BASIC METABOLIC PANEL Routine 09/30/2023 7:12 AM RESIDENTIAL ROOFER from Last 3 Months or Most Recently Relevant to Health Maintenance Results * (ABNORMAL) Basic metabolic panel (09/30/2023 7:12 AM RESIDENTIAL ROOFER) [facility] Sodium 133(L) 135 - 145 mmol/L 09/30/2023 8:05 AM [facility] Comment:Reference intervals for this test were updated on 05/07/2023 to more accurately reflect our healthy population. There may be differences in the flagging of prior results with similar values performed with this method. Interpretation of those prior results can be made in the context of the updated reference intervals. Potassium 3.6 3.4 - 5.3 mmol/L 09/30/2023 8:05 AM [facility] Chloride 96(L) 98 - 107 mmol/L 09/30/2023 8:05 AM [facility] Carbon Dioxide (CO2) 25 22 - 29 mmol/L 09/30/2023 8:05 AM [facility] Anion Gap 12 7 - 15 mmol/L 09/30/2023 8:05 AM [facility] Urea Nitrogen 15.4 8.0 - 23.0 mg/dL 09/30/2023 8:05 AM [facility] Creatinine 0.71 0.51 - 0.95 mg/dL 09/30/2023 8:05 AM [facility] GFR Estimate 90 >60 mL/min/1. 73m2 09/30/2023 8:05 AM [facility] Calcium 9.3 8.8 - 10.2 mg/dL 09/30/2023 8:05 AM [facility] Glucose 104(H) 70 - 99 mg/dL 09/30/2023 8:05 AM [facility] Blood STRUCTURE OF RIGHT HAND / Unknown Venipuncture / Unknown 09/30/2023 7:12 AM RESIDENTIAL ROOFER 09/30/2023 7:42 AM [facility] Charlene Garcia PA-C LAB - BLOOD ORDERABL ES LABORATORY [facility] [address] [facility] (1st floor, no room number) [place] [address], [facility] [phone] from Last 3 Months or Most Recently Relevant to Health Maintenance Advance Directives For more information, please contact: [phone] * Full Code (Latest Code Status on File) Date Activated Date Inactivated Comments 09/27/2023 8:59 PM 09/30/2023 12:50 PM All basic a nd advanced life-sustaining interventions are performed as appropriate Question Answer Comments Code status determined by: Discussion with viviane nt/ legal decision maker Care Teams Base Filler Relationship Specialty Start Date End Date Maryan Gallagher PA-C [address] [place] [address] PCP - General 09/18/23
--- OUTSIDE RECORDS SUMMARY | 2024-05-21 07:43 | XMS_ITS | Data Portability ---
Author Organization [place] - [facility], [facility] - OP Address [address] [place] [address] Care Team Providers Care Process Excellence Manager Name Role Phone ARTURO MASON Primary Care Provider Assessment Encounter Date Assessment Date Assessment LastModified by Organization Details LastModified Time 08/14/2023 08/14/2023 Dx: cervical stenosis and kyphosis and adjacent level disease above prior fusion with neck pain and cervical radiculopathy RX: C Collar - Patient was prescribed a C Collar brace. This orthosis is required to reduce pain by restricting mobility of the neck, supporting your spinal posture, preventing further injury and promoting healing. [email or web address] Not available 08/13/2023 14:15:46 08/14/2023 08/14/2023 Dx: cervical stenosis and kyphosis and adjacent level disease above prior fusion with neck pain and cervical radiculopathy RX: C Collar - Patient was prescribed a C Collar brace. This orthosis is required to reduce pain by restricting mobility of the neck, supporting your spinal posture, preventing further injury and promoting healing. [email or web address] Not available 08/14/2023 11:17:31 09/30/2023 09/30/2023 DAILY PROGRESS N SUEE Mally Foster is a 73 year old old female admitted on 09/27/2023 6:50 AM. Cipriano Norwood is a 73 year old female presenting POD3 from a C3 to C6 ACDF w/ C3-C7 PCF with Dr. Denson. Patient has been doing very well. She notes that she has been able to be up in her chair comfortably, up with assist, able to use the bathroom and get some sleep last night. Yesterday she was in quite a bit of pain. We decided to up her med to Oxycodone 10mg PRN which has help the pt a lot in the last 24hrs. She denies any UE symptoms. She tells me that she has had amazing staff and care here at [facility] and wants to extend her gratitude. She is ready for discharge and all questions were answered. Objective AAOx3, Ambulating, Strength Intact, Sensation Intact Hemoglobin Date Value Ref Range Status 09/29/2023 12.9 11.7 - 15.7 g/dL Final ] Impression / Plan Plan for discharge Home today Plan for today: Patient doing well Ambulate with help PT OT possibly clearance Full diet Today PO meds Discharge Home on Oxy10, Robaxin and Hydroxyzine Charlene Radha PAC ahaberer Not available 09/30/2023 11:34:46 10/29/2023 10/29/2023 Assessment s/p C3-C6 ACDF and C3-C7 PCF (09/27/23) Plan: -Discussed the patient's physical exam and reviewed their imaging - Discussed all treatment options and agreed upon the following: - All questions answered to the patient's satisfaction - They will call the clinic or return if they have any interim concerns - Imaging: C CT of spine ordered - Brace: Patient instructed to wear the brace during activity and in vehicles - Activity: WBAT, Instructed to BLTs, avoid strenuous activity and heavy lifting - Patient to start of course of PT - Pain control: recommended course of OTC NSAIDs and tylenol if no medical contraindications - FU: Patient to return to the clinic in 2mo for 3mo post-op, f/u w/ SK ahaberer Not available 10/29/2023 15:15:15 01/29/2024 01/29/2024 Assessment s/p C3-C6 ACDF and C3-C7 PCF ( 09/27/23 ) ??? Plan: -Discussed the patient's physical exam and reviewed their imaging - Discussed all treatment options and agreed upon the following: - All questions answered to the patient's satisfaction - They will call the clinic or return if they have any interim concerns - Imaging: C CT of spine ordered - Activity: WBAT, Instructed to BLTs, avoid strenuous activity and heavy lifting - Pain control: recommended course of OTC NSAIDs and tylenol if no medical contraindications - FU: Patient to return to the clinic in 3mo for 6mo post-op ahaberer Not available 01/29/2024 11:01:53 Plan of Treatment Reminders Order Date Submit Date Provider Last Modified By Organization Details Last Modified Time Details Appointments None record ed. Lab None record ed. Referral None record ed. Procedures None record ed. Surgeries None record ed. Imaging None record ed. Medication Orders None record ed. Patient TargetsNo targets recorded. Patient Instructions Encounter Date Encounter Id Patient Instructions Last Modified By Organization Details Last Modified Time 08/14/2023 [id number] Discussion: Patient was examined evaluated, brace was fitted and adjusted. Patient has been educated about the use and application of the brace. All questions were answered. [email or web address] Not available 08/13/2023 14:15:26 08/14/2023 [id number] Discussion: Patient was examined evaluated, brace was fitted and adjusted. Patient has been educated about the use and application of the brace. All questions were answered. [email or web address] Not available 08/14/2023 11:17:32 10/29/2023 [id number] Discussion: I discussed the clinical findings with the patient. All questions were answered. Risk factors reviewed with the patient and a C CT w/o was ordered. The risks and benefits of physical therapy were discussed and the patient is in agreement to begin course of PT Synopsis: 10/29/23, [facility]: C CT w/o (10/29/23) at [facility]: s/p C3-C6 ACDF and C3-C7 PCF (09/27/23): PT, C CT w/o, F/u in 2mo for 3mo post-op, f/u w/ SK ahaberer Not available 10/29/2023 15:15:27 01/29/2024 [id number] Discussion: I discussed the clinical findings with the patient. All questions were answered. Risk factors reviewed with the patient and a C CT w/o was ordered. Synopsis: 01/29/24, PANCHITO, [facility]: C CT w/o (01/29/24) at [facility]: s/p C3-C6 ACDF and C3-C7 PCF ( 09/27/23 ): C CT w/o, F/u in 3mo for 6mo post-op ahaberer Not available 01/29/2024 11:02:16 Reason for Referral Geriatric Nurse Practitioner Referral fo r Degeneration of cervical intervertebral disc Patient requires an ENT consult for vocal cord evaluation since previous ACDF seems to be from the left side. Referring Physician: Cj Yoon, Neurosurgery, Encounter Date: 05/07/2023 Results Created Date Observation Date Name Description Value Unit Range Abnormal Flag Note LastModifiedBy Organization Detail LastModifiedTime 11/27/19 24 10/29/2023 CT, cervi jc spine , w/o contr ast No observ ation record ed. [email or web address] Not Available 2023 12:40:32 02/03/20 24 01/29/2024 CT, cervi jc spine , w/o contr ast No observ ation record ed. [email or web address] Not Available 2023 10:27:06 Result Notes None recorded. Problems No Known Problems Procedures Surgical History Date Name Laterality Status Provider Name and Address Organization Details Recorded Time 3 Cervical JAISON completed Cj Yoon MD [address], [place], [address] [email or web address] [facility] 04/01/2023 12:53:08 3 Cervical JAISON completed Franki Henry [place] [email or web address] 03/08/2023 16:07:40 6 Neck Surgery completed Eve Ochoa [place] [email or web address] 01/18/2023 12:27:06 Imaging Results Imaging Date Name Status LastModified by Organiz ation Details LastModified Time 10/29/2023 CT, cervical spine, w/o contrast completed Information not available 11/27/2023 12:40:32 01/29/2024 CT, cervical spine, w/o contrast completed Information not available 02/03/2024 10:27:06 Procedure Notes None recorded. Medical Equipment None Reported. Allergies Allergen ID Allergen Name Allergen Category Reaction Reaction Severity Criticality Documentation Date Start Date Code Code System Note Provider Name and Address Organization Details Recorded Time 8054 isosorbid e medicatio n palpitati ons Not available Not available 01/18/2023 6057 RxNorm Eve hendricks, [place] - [facility] 12:22:04 8055 pravastat in medicatio n myalgias (muscle pain) Not available Not available 01/18/2023 85792 RxNorm Eve Ochoa null, [place] - [facility] 3 12:22:25 8056 lisinopri l medicatio n cough Not available Not available 01/18/2023 03035 RxNorm Eve Ochoa null, [place] - [facility] 3 12:22:54 8057 atorvasta tin medicatio n myalgias (muscle pain) Not available Not available 01/18/2023 53121 RxNorm Eve Ochoa null, [place] - [facility] 3 12:23:15 8058 rosuvasta tin medicatio n chest pain Not available Not available 01/18/2023 81025 2 RxNorm Eve Ochoa null, [place] - [facility] 3 12:23:29 Medications Name Sig Start Date Stop Date Status Note LastModified by Organization Details LastModified Time celecoxib 200 mg capsule TAKE 1 CAPSULE (200 MG) BY MOUTH 2 TIMES DAILY IF NEEDED FOR PAIN. 05/06 completed Not Available Not Available Not Available methocarbam ol 500 mg tablet 10/28 completed Not Available Not Available Not Available silver sulfadiazin e 1 % topical cream APPLY TOPICALLY TO AFFECTED AREA(S) ONCE DAILY. 10/28 completed Not Available Not Available Not Available tizanidine 2 mg tablet TAKE 1-2 TABLETS (2-4 MG) BY MOUTH EVERY 6 HOURS IF NEEDED FOR MUSCLE SPASM. active Not Available Not Available No t Available trazodone 50 mg tablet TAKE 1 TABLET (50 MG) BY MOUTH AT BEDTIME IF NEEDED FOR SLEEP. active Not Available Not Available No t Available oxybutynin chloride ER 10 mg tablet,exte nded release 24 hr TAKE 1 TABLET (10 MG) BY MOUTH ONCE DAILY. 05/06 completed Not Available Not Available Not Available azithromyci n 250 mg tablet TAKE 500 MG (2 TABS) BY MOUTH ON DAY 1, THEN 250 MG (1 TAB) DAILY FOR DAYS 2-5. active Not Available Not Available No t Available tizanidine 4 mg tablet TAKE 1 TABLET (4 MG) BY MOUTH AT BEDTIME IF NEEDED FOR MUSCLE SPASM. 05/06 completed Not Available Not Available Not Available hydrocodone 5 mg-acetamin ophen 325 mg tablet TAKE 1 TABLET IF NEEDED UP TO 2 TIMES IN A DAY FOR SEVERE PAIN. 10/28 completed Not Available Not Available Not Available prednisone 20 mg tablet TAKE 2 TABLETS BY MOUTH EVERY DAY WITH A MEAL FOR FIVE DAYS 10/28 completed Not Available Not Available Not Available amlodipine 5 mg tablet TAKE 1 TABLET BY MOUTH EVERY DAY 05/06 completed Not Available Not Available Not Available omeprazole 40 mg capsule,del ayed release TAKE 1 CAPSULE (40 MG) BY MOUTH ONCE DAILY BEFORE A MEAL. 05/06 completed Not Available Not Available Not Available aspirin 81 mg tablet,doroteo yed release TAKE 1 TABLET BY MOUTH EVERY DAY WITH A MEAL 10/28 completed Not Available Not Available Not Available tramadol 50 mg tablet TAKE 1-2 TABLETS BY MOUTH TWO TIMES A DAY NEEDED FOR PAIN active Not Available Not Available No t Available terbinafine HCl 250 mg tablet TAKE 1 TABLET (250 MG) BY MOUTH ONCE DAILY. 05/06 completed Not Available Not Available Not Available Ear Wax Removal Drops 6.5 % PLACE 5 DROPS INTO BOTH EARS TWO TIMES DAILY. active Not Available Not Available No t Available benzonatate 100 mg capsule TAKE 1-2 CAPSULES (100-200 MG) BY MOUTH 3 TIMES DAILY IF NEEDED FOR COUGH. active Not Available Not Available No t Available cephalexin 500 mg capsule TAKE TWO CAPSULES BY MOUTH TWO TIMES A DAY FOR SEVEN DAYS 10/28 completed Not Available Not Available Not Available pantoprazol e 40 mg tablet,doroteo yed release TAKE 1 TABLET BY MOUTH EVERY DAY active Not Available Not Available No t Available simvastatin 20 mg tablet TAKE 1 TABLET (20 MG) BY MOUTH AT BEDTIME. active Not Available Not Available No t Available clotrimazol e-betametha sone 1 %-0.05 % topical cream APPLY TOPICALLY TO AFFECTED AREA(S) TWO TIMES DAILY. 05/06 completed Not Available Not Available Not Available nitroglycer in 0.[address] 1 TABLET UNDER THE TONGUE EVERY 5 MINUTES NEEDED FOR CHEST PAIN. 10/28 completed Not Available Not Available Not Available hydroxyzine HCl 25 mg tablet 10/28 completed Not Available Not Available Not Available bisacodyl 5 mg tablet,doroteo yed release TAKE 1 TABLET (5 MG) BY MOUTH ONCE DAILY IF NEEDED FOR CONSTIPAT ION. 01/28 completed Not Available Not Available Not Available furosemide 20 mg tablet TAKE 1 TABLET BY MOUTH EVERY DAY NEEDED FOR LEFT LOWER EXREMITY EDEMA 10/28 completed Not Available Not Available Not Available ergocalcife rol (vitamin D2) 1,250 mcg (50,000 unit) capsule 10/28 completed Not Available Not Available Not Available clobetasol 0.05 % topical ointment APPLY TOPICALLY TO AFFECTED AREA(S) TWO TIMES DAILY. 05/06 completed Not Available Not Available Not Available polyethylen e glycol 3350 17 gram/dose oral powder MIX 1 SCOOP (17 G) IN LIQUID THEN TAKE BY MOUTH ONCE DAILY IF NEEDED FOR CONSTIPAT ION. 10/28 completed Not Available Not Available Not Available estradiol 0.01% (0.1 mg/gram) vaginal cream APPLY 1 GRAM VAGINALLY AT NIGHT FOR 2 WEEKS. THEN DECREASE TO USING 2-3 NIGHTS A WEEK. ONCE SYMPTOMS WELL CONTROLLE D, CAN DECREASE TO USING ONCE A WEEK 05/06 completed Not Available Not Available Not Available methylpredn isolone 4 mg tablets in a dose pack TAKE BY MOUTH INSTRUCTE D PER PACKAGING . 10/28 completed Not Available Not Available Not Available celecoxib 100 mg capsule TAKE 1 CAPSULE (100 MG) BY MOUTH 2 TIMES DAILY IF NEEDED FOR PAIN. 05/06 completed Not Available Not Available Not Available losartan 100 mg tablet TAKE 1 TABLET (100 MG) BY MOUTH ONCE DAILY. active Not Available Not Available No t Available fluticasone propionate 50 mcg/actuati on nasal spray,suspe nsion INHALE 1-2 SPRAYS TO BOTH NOSTRILS ONCE DAILY. 05/06 completed Not Available Not Available Not Available amoxicillin 875 mg-potassiu m clavulanate 125 mg tablet TAKE 1 TABLET BY MOUTH TWO TIMES A DAY WITH MEALS FOR SEVEN DAYS 10/28 completed Not Available Not Available Not Available Ventolin HFA 90 mcg/actuati on aerosol inhaler INHALE 1-2 PUFFS BY MOUTH EVERY 4 HOURS NEEDED FOR SHORTNESS OF BREATH OR WHEEZING. 10/28 completed Not Available Not Available Not Available oxycodone 5 mg tablet TAKE 1 TABLET EVERY 4 HOURS BY ORAL ROUTE FOR 7 DAYS. 10/28 completed Not Available Not Available Not Available Arthritis Pain Relief (capsaicin) 0.075 % topical cream APPLY TO THE AFFECTED AREA(S) BY TOPICAL ROUTE 3 TIMES PER DAY active Not Available Not Available No t Available cyclobenzap rine 5 mg tablet TAKE 1 TABLET 3 TIMES A DAY BY ORAL ROUTE NEEDED FOR 15 DAYS, FOR MUSCLE SPASMS/PA IN. 10/28 completed Not Available Not Available Not Available duloxetine 30 mg capsule,del ayed release TAKE ONE CAPSULE BY MOUTH DAILY 05/06 completed Not Available Not Available Not Available duloxetine 60 mg capsule,del ayed release 10/28 completed Not Available Not Available Not Available peg 3350-electr olytes 236 gram-22.74 gram-6.74 gram-5.86 gram solution USE DIRECTED PER MNGI COLONOSCO PY PREP INSTRUCTI ONS 10/28 completed Not Available Not Available Not Available FeroSul 325 mg (65 mg iron) tablet TAKE 1 TABLET (325 MG) BY MOUTH ONCE DAILY WITH A MEAL. 05/06 completed Not Available Not Available Not Available diclofenac 1 % topical gel APPLY 2 G TOPICALLY TO AFFECTED AREA(S) FOUR TIMES DAILY- FAXED FOR PRIOR AUTH. 07/13/2210/28 completed Not Available Not Available Not Available cholecalcif duong (vitamin D3) 50 mcg (2,000 unit) capsule TAKE 1 CAPSULE BY MOUTH EVERY DAY 10/28 completed Not Available Not Available Not Available Eliquis 5 mg tablet TAKE 1 TABLET BY MOUTH TWO TIMES A DAY active Not Available Not Available No t Available Vitals Date Recorded Body height Heart rate Body mass index (BMI) Body weight Body temperature Oxygen saturation Oxygen saturation in Arterial blood by Pulse oximetry Provider Name and Address Organization Details Last Updated DateTime 4 160.02 cm 83 /min 29.4 kg/m2 39882.3 3 g 98.2 [degF] 99 % 99 % [facility] [place] [facility] 4 12:42:02 Date Recorded Body height Heart rate Body temperature Oxygen saturation Oxygen saturation in Arterial blood by Pulse oximetry Body mass index (BMI) Body weight Provider Name and Address Organization Details Last Updated DateTime 4 160.02 cm 74 /min 97.6 [degF] 97 % 97 % 28.3 kg/m2 18059.7 8 g Candace Medina [place] [facility] 14:29:18 Social History Question Answer Notes LastModified by Organizat ion Details LastModified Time Tobacco Smoking Status Never Smoker Eve hendricks, [place] - [facility] 01/18/2023 12:26:20 What Is Your Level Of Alcohol Consumption? None [email or web address] Information not available 01/18/2023 Are You Currently Employed? No [email or web address] Information not available 01/18/2023 What Was The Date Of Your Most Recent Tobacco Screening? 01/29/2024 [email or web address] Information not available 01/29/2024 Do You Use Any Illicit Or Recreational Drugs? No [email or web address] Information not available 01/18/2023 Has Tobacco Cessation Counseling Been Provided? No [email or web address] Information not available 01/18/2023 Do You Or Have You Ever Used Any Other Forms Of Tobacco Or Nicotine? No [email or web address] Information not available 01/18/2023 Sex: Unknown Functional Status None recorded. Mental Status None recorded. Family History Relationship Description Onset Age of this Age Resolved Age Notes LastModified by Organization Details LastModified Time Paternal Uncle Heart disease [email or web address] Not available 04/2023 12:24:52 Paternal Grandfather Heart disease Not available 04/2023 12:24:52 Sister Heart disease [email or web address] Not available 04/2023 12:24:52 Sister Diabetes mellitus [email or web address] Not available 04/2023 12:25:42 Brother Heart disease Not available 04/2023 12:25:01 Brother Acute stroke [email or web address] Not available 01/18/2023 12:25:25 Mother Diabetes mellitus [email or web address] Not available 04/2023 12:25:36 Medical History Condition Response Gout N Blood Diseases N Blood Transfusion N MRSA N Hernia Y Head Trauma/Injury N Lung Disease N Depression N COPD N Developmental or Behavioral Disorders N Pacemaker N Difficulty Swallowing N Anesthesia Complications N Cystic Fibrosis N Anxiety Disorder N Muscle, Joint, or Bone Problems N Obesity N Vision or Eye Problems N Arthritis Y Blood Clot N Stroke N Bladder or Kidney Problems N High Cholesterol N Headaches N Fibromyalgia N Allergies/Hayfever Y Parkinson's Disease N Ear or Hearing Problems N Hospitalizations N GI Problems N ADD/ADHD N Skin Problems N Anemia N PTSD N Multiple Sclerosis N Meningitis N Heart Attack (IA) N Diabetes N Immunocompromised N Hepatitis/Liver Disease N Bleeding Disorder N Cancer/Tumors N Heart Murmur N Cerebral Palsy N AIDS/HIV N Congestive Heart Failure (CHF) N Abuse/Domestic Violence N Asthma N Peripheral Vascular Disease N Epilepsy/Seizures N AFib N Seizures N Reflux/GERD N Sleep Apnea Y Thyroid Disorder N Aneurysm N Neuropathy N Pulmonary Embolism N Hypertension N Autism Spectrum Disorder (ASD) N Osteoporosis N Gynecological HistoryNo gynecological history recorded. Obstetrics History GPAL:G 0 P 0 0 0 0 Past Encounters Encounter ID Performer Location Encounter Start Date Encounter Closed Date Diagnosis/Indication Diagnosis SNOMED-CT Code Diagnosis ICD10 Code [id number] Davin Wooten [facility] [address] [place] [address] [place] [address] 01/18/2023 11:31:17 01/18/2023 16:08:14 [id number] Cj Yoon MD [facility] [address] [place] [address], [place] [address] 03/12/2023 10:57:38 03/14/2023 17:48:25 [id number] CJ YOON MD [facility] [address] [place] [address], [place] [address] 04/01/2023 11:27:39 04/03/2023 10:14:13 [id number] Gail Armagost [facility] [place] [facility] [address] [place] [address] [place] [address] 05/06/2023 09:47:16 05/17/2023 14:56:51 [id number] Darrell Denson MD [facility] [address] [place] [address] [address] 06/28/2023 10:12:19 07/01/2023 11:49:23 [id number] Darrell Denson MD [facility] [place] [address] [place] [address] [place] [address] 07/12/2023 16:07:02 07/15/2023 10:18:50 [id number] CHARLENE HABERER, PA-C [facility] [place] [facility] [address] [place] [address] [place] [address] 08/14/2023 10:30:51 08/15/2023 11:22:27 Spinal stenosis in cervical region 84424550 M48.02 [id number] CHARLENE HABERER, PA-C [facility] [address] [place] [address] [place] [address] 08/14/2023 10:33:44 08/15/2023 11:12:25 Spinal stenosis in cervical region 85668228 M48.02 [id number] CHARLENE HABERER, PA-C [facility] [place] [address] [place] [address] [place] [address] 09/30/2023 10:52:15 09/30/2023 10:54:58 [id number] CHARLENE HABERER, PA-C [facility] [address] [place] [address] [place] [address] 10/29/2023 12:18:47 10/30/2023 09:50:10 History of arthrodesis 910879239 Z98.1 [id number] CHARLENE HABERER, PA-C [facility] [address] [place] [address] [place] [address] 01/29/2024 14:21:48 01/30/2024 09:36:06 History of arthrodesis 966555781 Z98.1 Health Concerns Section Related Observation LastModified by Organization Detai ls LastModified Time None Recorded Concern Status LastModified by Organization Details LastModified Time None Recorded Advance Directives Directive None Recorded Payers Encounter Date Sequence Insurance Name Policy Number Policy Murray Covered Member ID Murray Member ID Guarantor Name 08/14/2023 1 [place] [employer] [facility] Mally Foster [id number] Mally Foster 08/14/2023 2 [employer] - DOS ON OR AFTER 2021 (MEDICARE SUPPLEMENT) [id number] Mally Cristian [id number] Mally Cristian 08/14/2023 1 [place] [employer] Mally Cristian [id number] Mally Cristian 08/14/2023 2 [employer] - DOS ON OR AFTER 2021 (MEDICARE SUPPLEMENT) [id number] Mally Cristian [id number] Mally Cristian 09/30/2023 1 [place] [facility] [employer] Mally Cristian [id number] Mally Cristian 09/30/2023 2 [employer] - DOS ON OR AFTER 2021 (MEDICARE SUPPLEMENT) [id number] Mally Cristian [id number] Mally Cristian 10/29/2023 1 [place] [facility] [employer] Mally Cristian [id number] Mally Cristian 10/29/2023 2 [employer] - DOS ON OR AFTER 2021 (MEDICARE SUPPLEMENT) [id number] Mally Cristian [id number] Mally Cristian 01/29/2024 1 [place] [facility] [employer] Mally Cristian [id number] Mally Cristian 01/29/2024 2 [employer] - DOS ON OR AFTER 2021 (MEDICARE SUPPLEMENT) [id number] Mally Cristian [id number] Mally Cristian Notes Date Note Type Note Provider Name and Address Organization Details Recorded Time 08/14/2023 text/html HPI:Patient pres ents to the clinic today for a DME brace fitting. CHARLENE MALIK PA-C [address] [place] [address], [phone], [facility] - [facility] 08/14/2023 11:17:37 08/14/2023 text/html HPI:Patient pres ents to the clinic today for a DME brace fitting. CHARLENE MALIK PA-C [address], [place], [address], [facility] - [facility] 08/14/2023 11:16:36 10/29/2023 text/html Chief Complaint: s/p C3-C6 ACDF and C3-C7 PCF (09/27/23) HPI:Enma is a 73-year-old female presenting to the clinic with her [id number] for a one-month post-op from a C3 to C6 ACDF and a C3 to C7 PCF with Dr. Denson on 09-27-23.From a surgical side, Enma is happy with her results as she is currently having pain at a 2 out of 10 and denies radiation numbness or tingling to the upper extremity. Her main source of pain is located at the base of her neck at the posterior aspect.Since her surgery, Enma notes that she had been diagnosed with a pulmonary embolism and has now started on a blood thinner medication which has caused her to be taking it easy. We discussed some post-operative expectations. She currently is not taking any narcotics or pain medication as she is doing well from the surgical sides of things, although she is very disappointed with the outcome of her hair.During this surgery, Enma was with the understanding that she would be getting the bottom half of her head shaved. She notes that there was some sort of glue in her hair that she would like to know how they got there. She has had several people try to get the mat and knots out of her hair for several weeks. And she also notes that she ended up going to a salon in order for them to help detangle it and they decided to cut the matted hair.Today, this is her main concern is the treatment of herself while under anesthesia and surgery and knowing where the glue in her hair came from and why no one took care of it. I discussed some possibilities with the patient and her [id number] and she has decided that she would like to talk to Dr. Denson at some point to discuss her concerns and embarrassments as she has been having several negative side effects on a non-surgical side of things since undergoing the procedure in September. This is the 1 month post-op appointment.Pain level right now: 2/10Pain range: 2/10 CHARLENE MALIK PA-C [address], [place], [address], [facility] - [facility] 10/29/2023 15:16:12 01/29/2024 text/html Chief Complaint: C3-C6 ACDF and C3-C7 PCF ( 09/27/23 ) HPI:Enma is a 73-year-old female who presents today for a three-month post-operative check-up following a C3 to C6 anterior cervical discectomy and fusion (ACDF) with a C3 to C7 posterior cervical fusion (PCF) performed by Dr. Denson on September 27, 2023.She reports a pain level of 0 out of 10 currently, with the worst being 3 out of 10.She denies any upper extremity symptoms and expresses satisfaction with the control of her pain. She arrived at the clinic without her brace, indicating that she uses it on an as-needed basis.During today's visit, it was noted that her incisions appear clean and her hardware is intact, with fusion pending.She was previously experiencing pain rated at 2 out of 10 from the surgical site, a decrease in intensity since the last assessment. The option of initiating physical therapy was discussed and she has been informed that the orders are already included in her chart.Enma expresses a positive outlook on her recovery and an eagerness to conclude her compensation case. She has been encouraged to schedule a follow-up visit in approximately 3 months, which should include a computed tomography (CT) scan prior. In the interim, she is advised to reach out with any concerns or questions. Furthermore, at her request, efforts are being made to compile and send all her medical records to her residence or email, as she is currently seeking treatment at a different facility for knee pain and has experienced issues with communication and documentation between providers. This is the 3-4 month post-op appointment.Pain level right now: 0/10Pain range: 3/10 CHARLENE MALIK PA-C [address], [place], [address], [facility] - [facility] 01/29/2024 14:53:52 OBGyn Episode No OBEpisode recorded.
--- OUTSIDE RECORDS SUMMARY | 2024-05-21 07:43 | XMS_ITS | Clinical Summary ---
Author Organization [facility] Address [address] [place] [id number] Care Team Providers Care Tassel Clipper Name Role Phone Maryan Gallagher PA-C Primary Care Provider [phone] Allergies Active Allergy Reactions Criticality Noted Date [...] Active fluticasone (FLONASE) 50 MCG/ACT nasal spray [place] 1-2 sprays in nostril daily as needed [...] Comments Blood Pressure 131/72 09/30/2023 7:30 AM INDUSTRIAL MACHINE SYSTEM TECHNICIAN Pulse 72 09/30/2023 7:30 AM INDUSTRIAL MACHINE SYSTEM TECHNICIAN Temperature 36.6 ??C (97.8 ??F) 09/30/2023 7:30 AM CS T Respiratory Rate 18 09/30/2023 7:30 AM INDUSTRIAL MACHINE SYSTEM TECHNICIAN Oxygen Saturation 94% 09/30/2023 7:30 AM INDUSTRIAL MACHINE SYSTEM TECHNICIAN Inhaled Oxygen Concentration - - Weight 80.6 kg (177 lb 9.6 oz) 09/27/2023 7:04 A M INDUSTRIAL MACHINE SYSTEM TECHNICIAN Height 153.5 cm (5' 0.43) 09/27/2023 7:04 AM CS T Body Mass Index 34.19 09/27/2023 7:04 AM INDUSTRIAL MACHINE SYSTEM TECHNICIAN Plan of Treatment Health Maintenance Due Date Last Done Comments ADVANCE CARE PLANNING 1952 ANNUAL REVIEW OF HM ORDERS 1952 CT COLONOGRAPHY 1952 DEXA 1952 FIT 1952 FLEX SIG 1952 LIPID 1952 sDNA (Cologuard) 1952 COLONOSCOPY 1962 COLORECTAL CANCER SCREENING 1962 HEPATITIS C SCREENING 1970 RSV VACCINE (1 - Risk 60-74 years 1-dose series) 2012 FALL RISK ASSESSMENT 2017 ZOSTER IMMUNIZATION (2 of 2) 01/06/2019 11/11/2018 PHQ-2 (once per calendar year) 2023 MEDICARE ANNUAL WELLNESS VISIT 03/04/2024 03/04/2023 COVID-19 Vaccine ( - 2023- season) 2024 01/12/2021, 12/22/2020 INFLUENZA VACCINE (#1) 2024 8, 06/01/2016, 06/09/2011, Additional history exists MAMMO SCREENING 08/16/2024 08/16/2022 GLUCOSE 09/30/2026 09/30/2023, 09/12, 09/28/2023, Additional history exists DTAP/TDAP/TD IMMUNIZATION (4 - Td or Tdap) 11/11/2028 11/11/2018, 01/17/2006, 01/17/2006, Additional history exists Pneumococcal Vaccine: 65+ Years Completed 06/09/2018, 04/09/2017 HPV IMMUNIZATION Aged Out No longer e ligible based on patient's age to complete this topic MENINGITIS IMMUNIZATION Aged Out No l onger eligible based on patient's age to complete this topic RSV MONOCLONAL ANTIBODY Aged Out No l onger eligible based on patient's age to complete this topic Medical Devices Implanted Type Area Fleet Technician Device Identifier Shelf Expiration Date Model / Serial / Lot Implant Bone 0.5-1 M Bland-Tcp Sponge Gran-Collage n Composite - [id number] Implanted:Qt y: 1 on 09/27/2023 by Darrell Denson MD at [facility] Metallic Hardware/An chor N/A: Spine Cervical PRECISION SPINE [id number] 10/10/2027 AMWS-TCP -10 / [id number] / [id number] A Reduction Poly Axial Screws Mid-Top, 4.0mm X 28mm Implanted:Qt y: 2 on 09/27/2023 by Darrell Denson MD at [facility] Metallic Hardware/An chor N/A: Spine Cervical AMW SPINE [id number] 2022 Laci Spinal [place]-S Straight 200x3.5mm [id number] - [id number] Implanted:Qt y: 1 on 09/27/2023 by Darrell Denson MD at [facility] Metallic Hardware/An chor N/A: Spine Cervical AEGIS SPINE [id number] 2022 Description:Laci cut into two sections 3.5 X 14mm Standard Self Drilling Screws Implanted:Qt y: 6 on 09/27/2023 by Darrell Denson MD at [facility] Metallic Hardware/An chor N/A: Spine Cervical AMW SPINE 37-SD-40 8002 [id number] Plate Bn [id number] Ti Stndaln Vault C Ns Spne Acdf - [id number] Implanted:Qt y: 2 on 09/27/2023 by Darrell Denson MD at [facility] Metallic Hardware/An chor N/A: Spine Cervical PRECISION SPINE 37-PA-42 8002 [id number] Plate Bn [id number] Ti Vault C Spne Crv Ant Stnd 37-Pa-4209 - [id number] Implanted:Qt y: 1 on 09/27/2023 by Darrell Denson MD at [facility] Metallic Hardware/An chor N/A: Spine Cervical PRECISION SPINE 37-PA-42 8002 [id number] 14 X 120 X 8mm 0?? Posterior Cage Implanted:Qt y: 2 on 09/27/2023 by Darrell Denson MD at [facility] Metallic Hardware/An chor N/A: Spine Cervical AMW SPINE 37-CP-42 8202 [id number] Cage Spnl 14x9mm Vault C 0d 12mm Post Peek-Optm 37-Cp-4209 - [id number] Implanted:Qt y: 1 on 09/27/2023 by Darrell Denson MD at [facility] Metallic Hardware/An chor N/A: Spine Cervical PRECISION SPINE 37-CP-42 8202 [id number] Tap Spinal Lnk 12x3mm [id number] - [id number] Implanted:Qt y: 1 on 09/27/2023 by Darrell Denson MD at [facility] Metallic Hardware/An chor N/A: Spine Cervical AEGIS SPINE [id number] / / Screw Set [place]-S M7 Spine Posterior Cervical [id number] - [id number] Implanted:Qt y: 6 on 09/27/2023 by Darrell Denson MD at [facility] Metallic Hardware/An chor N/A: Spine Cervical AEGIS SPINE [id number] 2022 Reduction Poly Axial Screws Mid-Top, 4.0mm X 14mm Implanted:Qt y: 4 on 09/27/2023 by Darrell Denson MD at [facility] Metallic Hardware/An chor N/A: Spine Cervical AMW SPINE [id number] [id number] 2022 Procedures Procedure Name Priority Date/Time Associated Diagnosis Comments BASIC METABOLIC PANEL Routine 09/30/2023 7:12 AM INDUSTRIAL MACHINE SYSTEM TECHNICIAN from Last 3 Months or Most Recently Relevant to Health Maintenance Results * (ABNORMAL) Basic metabolic panel (09/30/2023 7:12 AM INDUSTRIAL MACHINE SYSTEM TECHNICIAN) [facility] Sodium 133(L) 135 - 145 mmol/L 09/30/2023 8:05 AM INDUSTRIAL MACHINE SYSTEM TECHNICIAN [facility] Comment:Reference intervals for this test were updated on 05/07/2023 to more accurately reflect our healthy population. There may be differences in the flagging of prior results with similar values performed with this method. Interpretation of those prior results can be made in the context of the updated reference intervals. Potassium 3.6 3.4 - 5.3 mmol/L 09/30/2023 8:05 AM INDUSTRIAL MACHINE SYSTEM TECHNICIAN [facility] Chloride 96(L) 98 - 107 mmol/L 09/30/2023 8:05 AM INDUSTRIAL MACHINE SYSTEM TECHNICIAN [facility] Carbon Dioxide (CO2) 25 22 - 29 mmol/L 09/30/2023 8:05 AM INDUSTRIAL MACHINE SYSTEM TECHNICIAN LABORATORY Anion Gap 12 7 - 15 mmol/L 09/30/2023 8:05 AM [facility] Urea Nitrogen 15.4 8.0 - 23.0 mg/dL 09/30/2023 8:05 AM [facility] Creatinine 0.71 0.51 - 0.95 mg/dL 09/30/2023 8:05 AM [facility] GFR Estimate 90 >60 mL/min/1. 73m2 09/30/2023 8:05 AM [facility] Calcium 9.3 8.8 - 10.2 mg/dL 09/30/2023 8:05 AM [facility] Glucose 104(H) 70 - 99 mg/dL 09/30/2023 8:05 AM [facility] Blood STRUCTURE OF RIGHT HAND / Unknown Venipuncture / Unknown 09/30/2023 7:12 AM INDUSTRIAL MACHINE SYSTEM TECHNICIAN 09/30/2023 7:42 AM INDUSTRIAL MACHINE SYSTEM TECHNICIAN Charlene Garcia PA-C LAB - BLOOD ORDERABL ES LABORATORY [facility] [address] [facility] (1st floor, no room number) [place] [address], [facility] [phone] from Last 3 Months or Most Recently Relevant to Health Maintenance Advance Directives For more information, please contact: [phone] * Full Code (Latest Code Status on File) Date Activated Date Inactivated Comments 09/27/2023 8:59 PM 09/30/2023 12:50 PM All basic a nd advanced life-sustaining interventions are performed as appropriate Question Answer Comments Code status determined by: Discussion with patie nt/ legal decision maker Care Teams Tassel Clipper Relationship Specialty Start Date End Date Maryan Gallagher PA-C [address] [place] [address] PCP - General 09/18/23
--- OUTSIDE RECORDS SUMMARY | 2024-05-21 07:43 | XMS_ITS | Clinical Summary ---
Author Organization [employer] [facility] [email or web address] [facility] Address [place], [place] [address] Care Team Providers Care Tooth Cutter Contact Wheel Name Role Phone Reno Strong MD Unavailable [phone] Maryan Gallagher Primary Care Provider [phone] Allergies Active Allergy Reactions Criticality Noted Date Comments Rosuvastatin Chest Pain 06/12/2017 Iodinated Contrast Media Anaphylaxis High 10/22/2009 Isosorbide Mononitrate Palpitations 04/24/2013 Atorvastatin Myalgia 04/09/2017 Lisinopril Cough 05/30/2016 Oxycodone Hallucinations 05/11/2024 Pravastatin Sodium Myalgia 04/24/2013 Medications Medication Sig Dispensed Refills Start Date End Date Status glycerin, adult, (Fleet Glycerin, Adult,) suppositoryIndicat ions:Chronic constipation,Impac dago stool in rectum (HC) Insert 1 Suppository rectally once daily if needed for Constipation. 25 Suppository 2 Active Graduated Compression StockingsIndicatio ns:Leg swelling For personal use. Length: calf Strength: 16-20 mmHg 1 Packet 2 Active clobetasol 0.05% (TEMOVATE 0.05% OINTMENT) 0.05 % ointmentIndication s:Lichen sclerosus Apply topically to affected area(s) two times daily. 60 g 2 3 Active albuterol HFA (PRO-AIR; VENTOLIN; PROVENTIL) 90 mcg/actuation inhalerIndications :Wheezing Inhale 1-2 Puffs by mouth every 4 hours if needed for Shortness Of Breath or Wheezing. 18 g 11 3 Active cholecalciferol (Vitamin D-3) 2,000 unit capsuleIndications :Vitamin D deficiency Take 1 Capsule (2,000 units) by mouth once daily. 90 Capsule 3 4 Active aspirin (ECOTRIN) 81 mg enteric coated tabletIndications: Coronary artery disease involving zuni coronary artery of zuni heart without angina pectoris Take 1 Tablet (81 mg) by mouth once daily with a meal. 90 Tablet 3 4 Active nitroglycerin (NITROSTAT) 0.4 mg sublingual tabletIndications: Coronary artery disease involving zuni coronary artery of zuni heart without angina pectoris Place 1 Tablet (0.4 mg) under the tongue every 5 minutes if needed for Chest Pain. 25 Tablet 4 Active losartan (COZAAR) 100 mg tabletIndications: HTN (hypertension) TAKE 1 TABLET (100 MG) BY MOUTH ONCE DAILY. 90 Tablet 2 4 Active polyethylene glycoL (MIRALAX) 17 gram/scoop powderIndications: Chronic constipation Mix 1 scoop (17 g) in liquid then take by mouth once daily if needed for Constipation. 510 g 5 4 Active bisacodyL (DULCOLAX) 5 mg delayed release tabletIndications: Fecal impaction (HC) Take 1 Tablet (5 mg) by mouth once daily if needed for Constipation. 30 Tablet 4 Active pantoprazole (PROTONIX) 40 mg delayed-release tabletIndications: Chronic GERD TAKE ONE TABLET BY MOUTH EVERY DAY 90 Tablet 4 Active tiZANidine (ZANAFLEX) 2 mg tabletIndications: Strain of thoracic region, initial encounter,Strain of left shoulder, initial encounter Take 1-2 Tablets (2-4 mg) by mouth every 6 hours if needed for Muscle Spasm. 40 Tablet 4 Active traZODone (DESYREL) 50 mg tabletIndications: Insomnia, unspecified type Take 1 Tablet (50 mg) by mouth at bedtime if needed for Sleep. 90 Tablet 1 4 Active apixaban (ELIQUIS) 5 mg tabletIndications: Pulmonary embolism, bilateral (HC) Take 1 Tablet (5 mg) by mouth two times daily. 180 Tablet 1 4 Active diclofenac topical (VOLTAREN) 1 % gelIndications:Patricia yadi osteoarthritis of left knee Apply 2 g topically to affected area(s) four times daily. 100 g 2 4 Active durable medical equipment (DME)Indications:S tatus post cervical spinal fusion,Chronic cervical pain Original Benito cervical roll 20 neck support pillow 1 Each 4 Active carbamide peroxide (DEBROX) 6.5 % otic solutionIndication s:Bilateral hearing loss due to cerumen impaction Place 5 Drops into both ears two times daily. 15 mL 1 4 Active furosemide (LASIX) 20 mg tabletIndications: Edema of left lower extremity TAKE 1 TABLET BY MOUTH EVERY DAY NEEDED FOR LEFT LOWER EXREMITY EDEMA 90 Tablet 1 4 Active benzonatate (TESSALON) 100 mg capsuleIndications :Acute bronchitis, unspecified organism TAKE 1-2 CAPSULES (100-200 MG) BY MOUTH 3 TIMES DAILY IF NEEDED FOR COUGH. PENA $7.50 NOT COVERED 30 Capsule 4 Active simvastatin (ZOCOR) 20 mg tabletIndications: Mixed hyperlipidemia TAKE 1 TABLET (20 MG) BY MOUTH AT BEDTIME. 90 Tablet 2 4 Active gabapentin (NEURONTIN) 300 mg capsuleIndications :Neuropathic pain Take 1 Capsule (300 mg) by mouth two times daily. 60 Capsule 4 Active HYDROcodone-acetam inophen (7.5-325 mg/tablet)Indicati ons:Accidental fall, initial encounter Take 1 Tablet by mouth 3 times daily if needed for Pain. Max acetaminophen dose: 4000mg in 24 hrs. 30 Tablet 4 Active HYDROcodone-acetam inophen (5-325 mg/tablet)Indicati ons:Chronic pain of both knees TAKE 1 TABLET IF NEEDED UP TO 2 TIMES IN A DAY FOR SEVERE PAIN. 30 Tablet 4 04/30/20 24 Discontinu ed(*Medica tion adjustment ) traMADoL (ULTRAM) 50 mg tabletIndications: Chronic pain of left knee,Chronic radicular cervical pain Take 1-2 Tablets (50-100 mg) by mouth 2 times daily if needed for Pain. 120 Tablet 2 4 05/11/20 24 Discontinu ed(*Medica tion adjustment ) HYDROcodone-acetam inophen (7.5-325 mg/tablet)Indicati ons:Rib pain on left side,Acute pain of left shoulder,Injury of neck, initial encounter,Accident al fall, initial encounter Take 1 Tablet by mouth 3 times daily if needed for Pain. Max acetaminophen dose: 4000mg in 24 hrs. 15 Tablet 4 05/11/20 24 Discontinu ed(Reorder (E-cancel not sent)) Active Problems Problem Noted Date Diagnosed Date Venous insufficiency 10/30/2023 Pulmonary embolism, bilateral 10/30/2023 Depression, recurrent 03/06/2023 Chest pain 10/31/2022 Osteoarthritis of both knees 07/20/2022 Controlled substance agreement signed 07/08/2021 Lichen sclerosus of female genitalia 12/26/2020 Overview (12/26/2020): Not pathology proven-presumptive based on appearance Lauren Ramos MD Cystocele with prolapse 09/21/2020 OAB (overactive bladder) 09/21/2020 Pes anserine bursitis 09/26/2018 Arthritis of left knee 09/05/2018 Chronic pain of both knees 09/05/2018 Arthritis of right knee 09/05/2018 Chronic pain of left knee 09/05/2018 Pain and swelling of right knee 09/05/2018 Prediabetes 02/26/2018 Gastroesophageal reflux disease without esophagi tis 02/26/2018 DDD (degenerative disc disease), cervical 2017 Cervical radiculopathy 02/26/2018 Hyperlipidemia, unspecified 11/01/2016 SHARDA (obstructive sleep apnea) 10/19/2016 Overview (06/11/2017): Not using CPAP Left arm pain 10/19/2016 Vitamin D deficiency 10/19/2016 HTN (hypertension) 01/25/2014 CAD (coronary artery disease) 01/25/2014 Overview (02/26/2018): 2012 S/p stent placement in [place] 01/2018 angiogram: patent LAD stent, 40% stenosis proximal circ Dysphagia 09/12/2007 Contracture of ankle and foot joint 09/14/2005 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/2019): JOINT CONTRACTURE-ANKLE Osteoarthritis of ankle or foot 09/14/2005 Constipation 09/14/2003 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/2019): Epic Gastritis Resolved Problems Problem Noted Date Diagnosed Date Resolved Date Stable angina 01/15/2019 02/02/2019 Pain medication agreement 06/09/2018 Overview (06/09/2018): Tramadol 1-2 times per day for treatment of neck pain and back pain Angina pectoris 01/15/2018 02/26/2018 Atypical chest pain 01/14/2018 01/15/20 Presence of coronary angiopl asty implant and graft 11/06/2016 06/15/2020 Left leg pain 10/19/2016 05/27/2020 Pneumonia 06/26/2016 03/11/2017 Chest pain on breathing 06/26/2016 11/0 11/2019 Toxic diffuse goiter 01/16/2003 021 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/2019): Graves' Disease Encounters Date Type Department Care Team Description 05/19/[address] [address] Maryan Gallagher PA Appointment Request (PAIN) 05/11/2024 11:30 AM CDT Office Visit [address] [address] Maryan Gallagher PA Follow Up (Left shoulder); Ear Problem (Feels like she can't hear) 05/11/2024 Travel 05/04/[address] [address] Maryan Gallagher PA Pain (med) 04/30/2024 11:30 AM CDT Ancillary Procedure [address] [address] 04/30/2024 11:15 AM CDT Ancillary Procedure [address] [address] 04/30/2024 11:00 AM CDT Ancillary Procedure [address] [address] 04/30/2024 10:30 AM CDT Office Visit [facility] [address] [place] [address] Maryan Gallagher PA Fall (A week and a half ago she fell face down-tripped on a rug-then yesterday afternoon she did it again only this time when she tried to catch herself her left arm 'folded' and now has swelling in left wrist and forearm and limited ROM in left shoulder-also left side pain) 04/30/2024 Travel 03/23/2024 Refill [facility] [address] [place] [address] Maryan Gallagher PA Refill Request (Simvastatin) 03/03/2024 Refill [facility] [address] [place] [address] Maryan Gallagher PA Refill Request (Benzonatate) 03/02/2024 Telephone [facility] [address] [place] [address] Maryan Gallagher PA Questions 02/29/2024 Refill [facility] [address] [place] [address] Maryan Gallagher PA Refill Request (Benzonatate) 02/21/2024 Refill [facility] [address] [place] [address] Maryan Gallagher PA Refill Request (Furosemide) from Last 3 Months Immunizations Name Administration Dates Next Due COVID-19 vaccine ([facility] 30mcg/0.3mL) P F, MDV 01/12/2021,12/22/2020 Influenza Virus, Unspecified 06/09/2011,05/16/20 10 Influenza, IIV3 (Age 6-35 mos) 05/16/2010 Influenza, IIV3 (Age >=3 years) 06/09/2011,05/16 Influenza, IIV4 06/01/2016 Influenza, Inactivated IIV3 (Age 65+ Years) Preserv Free 06/09/2018 Pneumococcal Poly,23-Valent (Pneumovax) 06/09/20 18 Pneumococcal conj 13-Valent (Prevnar 13) 017 TD, UNSPECIFIED 01/17/2006 Td (Age >=7 Years) 01/17/2006 Td, Preservative Free (age >= 7 Years) 6 Tdap 11/11/2018 Zoster (Shingrix-RZV, recombinant) 11/11/2018 Family History Medical History Relation Name Comments Diabetes Brother Heart Disease Father Stroke Father age 52 Diabetes Mother Heart Disease Mother Cancer-breast Sister age 67 Diabetes Sister Heart Disease Sister Cancer Son rare tumor in c hest Anesthesia Problem No Family History Relation Name Status Comments Brother Father Mother Sister Son Alive Social History Tobacco Use Types Packs/Day Years Used Date Smoking Tobacco: Never Smokeless Tobacco: Never Tobacco Cessation:Counseling Given: Yes Alcohol Use Standard Drinks/Week Comments Not Currently 0 (1 standard drink = 0.6 oz pur e alcohol) PHQ-2 Answer Date Recorded PHQ-2 TOTAL SCORE 1 03/04/2023 Social Connections Answer Date Recorded Frequency of Communication with Friends and Fami ly 0 11/12/2023 Financial Resource Strain Answer Date R ecorded Difficulty of Paying Living Expenses 3 11/12/2023 Difficulty of Paying Living Expenses Not on file 11/12/2023 Food Insecurity Answer Date Recorded Worried About Running Out of Food in the Last Ye ar 1 11/12/2023 Transportation Needs Answer Date Record ed Lack of Transportation (Medical) 1 11/12/2023 Housing Stability Answer Date Recorded Unable to Pay for Housing in the Last Year 2 11/12/2023 Sex and Gender Information Value Date Recorded Sex Assigned at Not on file Gender Identity Not on file Sexual Orientation Not on file Obstetrics History Para Term AB IAB SAB Ectopic Multiple Livin g Live Births 5 5 5 4 1 Date Outcome GA Total Labor Labor/2nd/3rd Weight Sex Type Anes PTL Lorene A1 A5 Name Clin Term Vag Demise Term Vag Term Vag Term Vag Term Vag Last Filed Vital Signs Vital Sign Reading Time Taken Comments Blood Pressure 118/76 05/11/2024 11:30 AM CDT Pulse 70 05/11/2024 11:30 AM CDT Temperature 36.9 ??C (98.4 ??F) 07/12/2023 11:[address] Respiratory Rate 14 07/04/2022 9:00 AM BANKING PIN ADJUSTER Oxygen Saturation 100% 05/11/2024 11:30 AM CDT Inhaled Oxygen Concentration - - Weight 70.3 kg (155 lb) 05/11/2024 11:30 AM CDT Height 156.8 cm (5' 1.75) 09/12/2023 9:56 AM CS T Body Mass Index 28.58 09/12/2023 9:56 AM BANKING PIN ADJUSTER Plan of Treatment Health Maintenance Due Date Last Done Comments DEXA/DXA scan for age 65+ 2017 Zoster (shingles) series for age 50+ (2 of 2) 01/06/2019 11/11/2018 Mammogram for age 45-75 08/23/2023 08/23/19 23, 08/16/2022, 12/09/2017 Medicare Wellness for age 65+ 03/04/2024 03/04/2023, 02/26/2018 Depression screening for age 12+ 03/08/2024 03/08/2023, 03/04/2023, 12/21/2020, Additional history exists COVID-19 vaccine series ( season) 2024 01/12/2021, 12/22/2020 Influenza for age 65+ 04/12/2024 06/09/2018 , 06/01/2016, 06/09/2011, Additional history exists BMI (ht and wt on same day) for age 18+ 09/12/2024 09/12/2023, 03/04/2023, 12/14/2022, Additional history exists Lipids for age 45-75 03/04/2028 03/04/2023, 10/16/2021, 03/21/2020, Additional history exists Tetanus booster 11/11/2028 11/11/2018, 06/0 03/2006, 01/17/2006, Additional history exists Colonoscopy through age 75 02/11/2033 02/11/2023 Hepatitis C screening for ag e 18-79 Completed 02/26/2018 Pneumococcal series for age 65+ Completed 8, 04/09/2017 Tdap Completed 11/11/2018 Medical Devices Implanted Type Area Clinical Counselor Device Identifier Shelf Expiration Date Model / Serial / Lot [id number] one Matrix 0.5cc Progenix Putty Dbm Implanted:Qty: 1 on 06/04/2018 by Jhoan Bowens MD at [facility] Explanted:at [facility] (Quantity not on file) N/A: Spine [employer] Spine/Ortho 08/19/2019 [id number] / [id number] / [id number] Spinal Graft Block Manuelito Implanted:Qty: 1 on 06/04/2018 by Jhoan Bowens MD at [facility] Explanted:at [facility] (Quantity not on file) N/A: Spine [employer] Spine/Ortho [id number] / [id number] / Screw Cerv Ant 3.5x13mm Zevo Variable Slf Drilling - [id number] Implanted:Qty: 4 on 06/04/2018 by Jhoan Bowens MD at [facility] N/A: Spine [employer] Spine/Ortho [id number] / / Plate Zevo 23mm 1 Lvl Implanted:Qty: 1 on 06/04/2018 by Jhoan Bowens MD at [facility] N/A: Spine [id number] / / Description:PLATE ZEVO 23MM 1 LVL Procedures Procedure Name Priority Date/Time Associated Diagnosis Comments XR SPINE CERVICAL 3 VIEWS Routine 04/30/2024 11:44 AM CDT Injury of neck, initial encounter XR SHOULDER 3 VIEWS LEFT Routine 04/30/2024 11:44 AM CDT Acute pain of left shoulder XR RIBS LEFT AND PA CHEST MINIMUM 3 VIEWS Routine 04/30/2024 11:43 AM CDT Rib pain on left side LIPID PANEL W REFLEX MEASURED LDL Routine 03/04/2023 9:58 AM CDT Mixed hyperlipidemia SCAN-COLONOSCOPY 02/11/2023 7:30 AM CDT XR MAMMO LINNEA UNI ADDL VIEWS LEFT UGO 08/23/2022 9:38 AM BANKING PIN ADJUSTER Abnormal mammogram ANTI HCV Routine 02/26/2018 9:14 AM CDT Need for hepatitis C screening test from Last 3 Months or Most Recently Relevant to Health Maintenance Results * XR SPINE CERVICAL 3 VIEWS (04/30/2024 11:44 AM CDT) Anatomical Region Laterality Modality CERVICAL SPINE Computed Radiogr aphy 04/30/2024 3:46 PM CDT Impressions 04/30/2024 3:46 PM CDT Intact spinal fixation hardware without acute findings. Dictated by Alex Martinez MD @ 04/30/2024 3:46:17 PM (Electronically Signed) Narrative 04/30/2024 3:46 PM CDT For Patients: ??As a result of the Cures Act, medical imaging exams and procedure reports are released immediately into your electronic medical record. ??You may view this report before your referring provider. ??If you have questions, please contact your health care provider. INDICATION: Injury, pain TECHNIQUE: Cervical spine 3 view. COMPARISON: 12/26/2021 FINDINGS: Postop changes of C3-C7 spinal fusion noted with intact hardware. No fracture. Procedure Note Alex Martinez MD - 04/30/2024 For Patients: As a result of the Cures Act, medical imagingexams and procedure reports are released immediately into your electronicmedical record. You may view this report before your referring provider.If you have questions, please contact your health care provider. INDICATION: Injury, pain TECHNIQUE: Cervical spine 3 view. COMPARISON: 12/26/2021 FINDINGS: Postop changes of C3-C7 spinal fusion noted with intact hardware. Nofracture. IMPRESSION: Intact spinal fixation hardware without acute findings. Dictated by Alex Martinez MD @ 04/30/2024 3:46:17 PM (Electronically Signed) Maryan ARNDT [facility] * XR SHOULDER 3 VIEWS LEFT (04/30/2024 11:44 AM CDT) Anatomical Region Laterality Modality SHOULDERS, SHOULDER L Computed R adiography 04/30/2024 3:45 PM CDT Narrative 04/30/2024 3:45 PM CDT For Patients: ??As a result of the Cures Act, medical imaging exams and procedure reports are released immediately into your electronic medical record. ??You may view this report before your referring provider. ??If you have questions, please contact your health care provider. Indication: Left shoulder pain. Technique: Left shoulder 3 views. Comparison: None. Findings: Hypertrophic change to the undersurface of the acromion. Glenohumeral narrowing and spurring. Osteopenia. Postop changes left upper rex thorax and lower cervical spine. Impression: Mild degenerative joint disease left shoulder. Dictated by Alex Martinez MD @ 04/30/2024 3:45:08 PM (Electronically Signed) Procedure Note Alex Martinez MD - 04/30/2024 For Patients: As a result of the s , medical imagingexams and procedure reports are released immediately into your electronicmedical record. You may view this report before your referring provider.If you have questions, please contact your health care provider. Indication: Left shoulder pain. Technique: Left shoulder 3 views. Comparison: None. Findings: Hypertrophic change to the undersurface of the acromion. Glenohumeralnarrowing and spurring. Osteopenia. Postop changes left upper rex thoraxand lower cervical spine. Impression: Mild degenerative joint disease left shoulder. Dictated by Alex Martinez MD @ 04/30/2024 3:45:08 PM (Electronically Signed) Maryan Gallagher PA GENERAL IM[facility] * XR RIBS LEFT AND PA CHEST MINIMUM 3 VIEWS (04/30/2024 11:43 AM CDT) Anatomical Region Laterality Modality RIBS, RIBS L, CHEST Computed Rad iography 04/30/2024 3:43 PM CDT Impressions 04/30/2024 3:43 PM CDT No acute cardiopulmonary disease. Intact left-sided ribs. Dictated by Alex Martinez MD @ 04/30/2024 3:43:49 PM (Electronically Signed) Narrative 04/30/2024 3:43 PM CDT For Patients: ??As a result of the Cures Act, medical imaging exams and procedure reports are released immediately into your electronic medical record. ??You may view this report before your referring provider. ??If you have questions, please contact your health care provider. INDICATION: Rib pain on left side COMPARISON: 11/12/2023 TECHNIQUE: PA chest and left ribs. FINDINGS: The lungs are clear. ??There is no evidence of pulmonary contusion, pneumothorax or pleural effusion. Mild tortuosity of the descending thoracic aorta. Postop changes upper abdomen, upper left rex thorax and lower cervical spine. Oblique detail views of the ribs demonstrate no evidence of fracture or intrinsic bone lesion. ??There is no evidence of pleural hematoma. Procedure Note Alex Martinez MD - 04/30/2024 For Patients: As a result of the Cures Act, medical imagingexams and procedure reports are released immediately into your electronicmedical record. You may view this report before your referring provider.If you have questions, please contact your health care provider. INDICATION: Rib pain on left side COMPARISON: 11/12/2023 TECHNIQUE: PA chest and left ribs. FINDINGS: The lungs are clear. There is no evidence of pulmonary contusion,pneumothorax or pleural effusion. Mild tortuosity of the descendingthoracic aorta. Postop changes upper abdomen, upper left rex thorax andlower cervical spine. Oblique detail views of the ribs demonstrate noevidence of fracture or intrinsic bone lesion. There is no evidence ofpleural hematoma. IMPRESSION: No acute cardiopulmonary disease. Intact left-sided ribs. Dictated by Alex Martinez MD @ 04/30/2024 3:43:49 PM (Electronically Signed) Maryan ARNDT [facility] * (ABNORMAL) LIPID PANEL W REFLEX MEASURED LDL (03/04/2023 9:58 AM CDT) CHOLESTEROL,TOTAL 152 100 - 199 mg/dL 03/04/2023 5:48 PM CDT [facility] Comment: Cholesterol, Total Reference Ranges Desirable <200 mg/dL Borderline 200-239 mg/dL High >=240 mg/dL TRIGLYCERIDES 192(H) <150 mg/dL 03/04/2023 5:48 PM CDT [facility] HDL CHOLESTEROL 49 >40 mg/dL 5:48 PM CDT [facility] NON-HDL CHOLESTEROL 103 <145 mg/dl 03/04/2023 5:48 PM CDT [facility] CHOL/HDL RATIO 3.10 <4.50 03/04/2023 5:48 PM CDT [facility] LDL CHOLESTEROL 65 <=130 mg/dL 03/04/2023 5:48 PM CDT [facility] VLDL CHOLESTEROL 38(H) <=30 mg/dL 03/04/2023 5:48 PM CDT [facility] PROVIDER ORDERED STATUS RANDOM 03/04/2023 5:48 PM CDT [facility] Blood BLOOD SPECIMEN / Unknown Venipuncture / Unknown 03/04/2023 9:58 AM CDT 03/04/2023 10:01 AM CDT Maryan ARNDT [facility]MI[facility] [address] [place] [address], * SCAN-COLONOSCOPY (02/11/2023 7:30 AM CDT) Narrative Procedure Note Don Loya MBBS - 02/11/2023 7:19 AM CDT [facility] [address], [address], [place] [address] Patient Name: Mally Foster Gender: Female Exam Date: 02/11/2023 Visit Number: [id number] Age: 72 Years Date of : 1950 Attending MD: Don Loya MD Medical Record#: [id number] Procedure: Colonoscopy Indications: Previous adenomatous polyp(s) Constipation Referring MD: Referral Self Primary MD: Maryan Gallagher PAC Medications: Admitting Medications: 0.9% Normal Saline at TKO Intra Procedure Medications: Patient received monitored anesthesia care. Complications: No immediate complications Procedure: An examination of the heart and lungs was performed and found to be withinacceptable limits. . The patient was therefore deemed a reasonablecandidate for endoscopy and sedation. The risks and benefits of the procedure were explained to the patient.After obtaining informed consent, the patient received monitoredanesthesia care and I passed the scope without difficulty via the rectum to the ileum. The appendiceal orificeand ic valve were identified. The scope was retroflexed during theexamination The quality of the prep was good (Vitaliy/Gat Split). This was a complete examination throughout the entire colon. Findings: Normal finding. Location - ileum. Hemorrhoids. External hemorrhoids without bleeding. Impression: Hemorrhoids, external Personal history of colonic polyps Chronic idiopathic constipation Preliminary Plan: Repeat colonoscopy in 5 years Return to your primary care provider as needed. Procedure: Upper GI Endoscopy Indications: Dyspepsia Early satiety Provider: Don Loya MD Referring MD: Referral Self Primary MD: Maryan Gallagher PAC Medications: Admitting Medication: 0.9% Normal Saline at TKO Intra Procedure Medications: Patient received monitored anesthesia care. Complications: No immediate complications Procedure: An examination of the heart and lungs was performed within acceptablelimits. . The patient was therefore deemed a reasonable candidate forsedation. The risks and benefits were explained to the patient, who appeared tounderstand. After obtaining informed consent, the scope was passed underdirect vision. Throughout the procedure the patient's blood pressure,pulse and oxygen saturations were monitored. The scope was introducedthrough the mouth and advanced to the third portion of duodenum. Findings: Esophagus: Normal esophagus. The z-line is 38 centimeters from the incisors. Top of the gastric foldsis 38 centimeters from the incisors. *Esophagus Comments: No stricture/stenosis Stomach: Normal stomach. H. Pylori biopsies taken. The diaphragm hiatus is at 38 centimeters from the incisors. *Stomach Comments: No pyloric stenosis Duodenum: Normal duodenum. Celiac Sprue biopsies taken. Celiac Sprue biopsies taken. Impression: Early satiety Dyspepsia Preliminary Plan: Return to primary care provider as necessary. Pathology Results: A: DUODENUM, BIOPSY: 1. Duodenal mucosa with no diagnostic abnormalities 2. Negative for celiac disease and other enteropathy B: STOMACH, BIOPSY: 1. Normal gastric antral and body mucosae 2. Negative for Helicobacter COMMENTS Part A reviewed with Dr. Carlos Manuel Perez. MICROSCOPIC A: Performed B: Performed Electronically signed by: Juan [place] [address] Orders Instruction(s)/Education: Instruction/Education Timeframe Assessment Colon Cancer Prevention R68.81 Hemorrhoids (External) R68.81 High Fiber Diet K59.04 _Electronically signed by: Don Loya MD 02/11/2023 cc: Maryan Gallagher PAC Don TAIBS OTHER * XR MAMMO LINNEA UNI ADDL VIEWS LEFT (08/23/2022 9:38 AM BANKING PIN ADJUSTER) Anatomical Region Laterality Modality BREASTS, Breast Left Mammography , Other Impressions 08/23/2022 1:10 PM BANKING PIN ADJUSTER Simple cyst and benign-appearing lymph node upper outer quadrant LEFT breast and LEFT axilla. RECOMMENDATION: Annual screening. Results and recommendations were discussed with the patient at the time of the exam. BI-RADS Category 2: Benign Dictated by: Ehsan Boss MD @08/23/2022 10:42:50 AM [email or web address] PATIENTS: You will also receive a letter with your examination results in an easy to read format. ??If you have questions about your results, please contact your referring provider. Narrative 08/23/2022 1:10 PM BANKING PIN ADJUSTER For Patients: As a result of the Century Cures Act, medical imaging exams and procedure reports are released immediately into your electronic medical record. ??You may view this report before your referring provider. ?? If you have questions, please contact your health care provider. ADDITIONAL VIEWS LEFT DIGITAL MAMMOGRAM USING TOMOSYNTHESIS, 08/23/2022 LEFT BREAST ULTRASOUND, 08/23/2022 INDICATION: Asymmetry LEFT breast. TECHNIQUE: LEFT diagnostic mammogram. Lateral and MLO spot views. Exaggerated LEFT CC view. Breast tomography. LEFT breast ultrasound. COMPARISON: 08/16/2022 BREAST COMPOSITION: ?? The breast is heterogeneously dense, which may obscure small masses. FINDINGS: The asymmetry is less noticeable and partially resolves on the spot view but is at the very peripheral posterior aspect of the image. A LEFT breast ultrasound was performed. Ultrasound of the LEFT breast: An ultrasound in the upper outer quadrant at 2 o'clock position 7 cm from the nipple performed. There is an anechoic simple cyst with well-circumscribed margins, 5 x 8 mm. Sonographically benign-appearing axillary lymph node. Maryan Gallagher PA MAMMO * ANTI HCV [40199.2] (02/26/2018 9:14 AM CDT) HEPATITIS C ANTIBODY Non-React britta Non-React britta 02/26/2018 5:05 PM CDT [facility] Comment:Antibodies to HCV no t detected; does not exclude the possibility of exposure to HCV. Blood BLOOD SPECIMEN / Unknown Venipuncture / Unknown 02/26/2018 9:14 AM CDT 02/26/2018 9:14 AM CDT Yadi Dahl MD SEND OUTS [facility] [address] [place] [address], [place] from Last 3 Months or Most Recently Relevant to Health Maintenance Advance Directives * Full Code (Latest Code Status on File) Date Activated Date Inactivated Comments 06/04/2018 11:14 AM 06/05/2018 12:40 PM * Full Code Date Activated Date Inactivated Comments 01/22/2018 8:17 AM 01/22/2018 5:50 PM * Full Code Date Activated Date Inactivated Comments 06/26/2016 8:01 PM 06/28/2016 2:28 PM Question Answer Comments Code Status Discussion: Not Discussed Care Teams Tooth Cutter Contact Wheel Relationship Specialty Start Date End Date Maryan Gallagher [place] [address] PCP - General Physician Flatwork Finisher Hand 03/04/23 Reno Strong MD Neurology Neurology 10/24/17
--- NOTE | 2024-05-21 08:15 | CRLHL7_ITS ---
For Patients: As a result of the 21st Century Cures Act, medical imaging exams and procedure reports are released immediately into your electronic medical record. You may view this report before your referring provider. If you have questions, please contact your health care provider. EXAM: MRI OF THE LEFT SHOULDER WITHOUT CONTRAST CLINICAL INDICATION: Acute left shoulder pain. COMPARISON PLAIN FILMS: None available at time of interpretation. COMPARISON CROSS-SECTIONAL IMAGING STUDIES: None available at time of interpretation. TECHNICAL: Axial, sagittal oblique and coronal oblique T1, PD, PD FS and T2-weighted images. Shoulder surface coil. FINDINGS: ROTATOR CUFF TENDONS AND MUSCLES AND DELTOID: Supraspinatus: Full-thickness tear of the entire supraspinatus tendon with 2.8 cm of medial retraction. Diffuse thickening and increased signal in the retracted tendon consistent with moderate to advanced tendinopathy. No muscle atrophy or edema. Infraspinatus: Oblique full-thickness tear of the majority of the infraspinatus tendon with a few thin anterior fibers which remain intact. There is a delaminating component extending to the myotendinous junction. Medial retraction. Moderate to advanced tendinopathy. Mild muscle atrophy. No muscle edema. Subscapularis: High-grade partial-thickness tear of the distal superior subscapularis tendon. Moderate tendinopathy. No muscle atrophy or edema. Teres Minor: No tendinosis, tendon tearing, muscle atrophy or muscle edema. Deltoid: No muscle atrophy or edema. BURSA: Subacromial-subdeltoid: Fluid in the subacromial subdeltoid bursa. BICEPS TENDON, LONG HEAD: Mild tendinopathy. No tendon tear. CORACOACROMIAL ARCH: Acromial Morphology: Type 2 acromial morphology. Mild lateral and anterior downsloping. Moderate-sized subacromial enthesophyte. No os acromiale. Acromiohumeral Interval: Normal. Coracohumeral Interval: Normal. ACROMIOCLAVICULAR JOINT REGION: AC Joint: Mild arthropathy. No inferior marginal osteophytes. Ligaments: The coracoclavicular ligaments are intact. GLENOHUMERAL JOINT: Joint space: Large glenohumeral joint effusion with mild synovitis. No loose body. Humeral Head Articular Cartilage: No focal cartilage defect or underlying subchondral marrow changes. Glenoid Articular Cartilage: No focal cartilage defect or underlying subchondral marrow changes. Labrum: No labral tear or paralabral cyst. Alignment: Maintained. Capsule: No capsular edema or abnormal capsular thickening. OSSEOUS STRUCTURES: No fracture, marrow edema or marrow replacement process. OTHER FINDINGS: There is no abnormality within the suprascapular or spinoglenoid notches nor within the quadrilateral space. No axillary adenopathy or mass. IMPRESSION: 1. Full-thickness tear and retraction of the supraspinatus tendon with moderate to advanced tendinopathy. 2. Oblique full-thickness tear of the majority of the infraspinatus tendon with a few thin anterior fibers which remain intact. Delaminating component extending to the myotendinous junction. Moderate to advanced tendinopathy. Mild muscle atrophy. 3. High-grade partial-thickness tear of the distal superior subscapularis tendon with moderate tendinopathy. 4. Long head of the biceps tendinopathy. 5. Large glenohumeral joint effusion and fluid in the subacromial subdeltoid bursa. 6. Coracoacromial arch configuration is associated with impingement. Dictated by Germain Escalante MD @ 05/22/2024 8:06:46 AM (Electronically Signed)
== END 2024-05-21 07:41 | disposition home or self-care (01) ==
LOC: MRI 07:41
PROVIDERS: PCP Physician Assistant; Visit Provider Physician Assistant
DX: M25.512 Pain in left shoulder (principal); M75.102 Unspecified rotator cuff tear or rupture of left shoulder, not specified as traumatic; S46.812A Strain of other muscles, fascia and tendons at shoulder and upper arm level, left arm, initial encounter; M25.412 Effusion, left shoulder; R29.898 Other symptoms and signs involving the musculoskeletal system
CPT/HCPCS: 73221

== ENCOUNTER 2024-06-09 09:37 | Outpatient (CLI) | payer MEDICARE, MEDICAID, SELFPAY | END 2024-06-09 09:38 | disposition home or self-care (01) | PROVIDERS: PCP Physician Assistant; Visit Provider Emergency Medicine | DX: R51.9 Headache, unspecified (principal) | CPT/HCPCS: A0425; A0427 ==

== ENCOUNTER 2024-06-09 10:05 | Emergency (ER) | payer MEDICARE, MEDICAID, SELFPAY ==
[2024-06-09] VITALS (14 sets, daily range): BP systolic 173–194; BP diastolic 72–115; PULSE 83–99; RESP 18–20; TEMP 36.8; O2SAT 95–100; BMI 27.3
[2024-06-09] MEDS: ONDANSETRON 2 MG/ML inj 4 MG IVP (10:52)
[2024-06-09] MEDS: MORPHINE 4 MG/ML INJ IVP (10:52)
--- NOTE | 2024-06-09 10:55 | CRLHL7_ITS ---
For Patients: As a result of the Century Cures Act, medical imaging exams and procedure reports are released immediately into your electronic medical record. You may view this report before your referring provider. If you have questions, please contact your health care provider. Indication: headache, jaw pain chills, cough Technique: Noncontrast sagittal T1, axial FLAIR, T2 turbo spine echo, and diffusion weighted images. Supplemental post contrast T1 weighted axial and coronal sequences are provided after administration of 13 mL Dotarem gadolinium-based IV contrast. Comparison: No prior studies available for comparison at this institution. Findings: Examination is limited by motion artifact. The ventricles, sulci and gyri are normal size, shape and contour for age. The midline structures are centrally located with no evidence of shift. There are no suspicious intra or extra-axial fluid collections. No evidence of restricted diffusion to suggest acute ischemia. Partially empty sella. The gland, and cerebellar tonsils are unremarkable. Scattered foci of T2 prolongation in the supratentorial white matter are nonspecific. No pathologic susceptibility artifacts. Small focus of suspected artifact at the pontomedullary junction likely due to remote microhemorrhage. Expected flow voids in the cavernous carotids and basilar artery. No abnormal contrast enhancement involving the brain parenchyma, meninges, calvarium or skull base. ACDF and posterior instrumented fusion postop changes in the cervical spine. Impression: 1. No evidence of acute intracranial abnormality. 2. Mild chronic microangiopathic changes. 3. No pathologic enhancement. 4. Examination is limited by motion artifact. Dictated by Alex Patiño MD @ 06/09/2024 12:48:54 PM (Electronically Signed)
--- NOTE | 2024-06-09 10:55 | CRLHL7_ITS ---
For Patients: As a result of the Century Cures Act, medical imaging exams and procedure reports are released immediately into your electronic medical record. You may view this report before your referring provider. If you have questions, please contact your health care provider. Indication: severe headache, jaw pain, chills, cough Technique: [id number]-pm-[id number] and Gadolinium bolus MR angiogram of the neck with 3D MIP reconstructions provided. All measurements are based on NASCET criteria. Postcontrast images obtained after administration of 13 ml Dotarem Gadolinium-based IV contrast. Comparison: No prior studies available for comparison at this institution. Findings: Both carotid systems are unremarkable in the neck. No evidence for hemodynamically significant internal carotid artery stenosis by NASCET criteria. The cervical segments of both vertebral arteries are patent. The visualized portions of the aortic arch, great vessel origins and proximal subclavian arteries are unremarkable. Impression: Unremarkable MRA of the neck as far as visualized. Dictated by Alex Patiño MD @ 06/09/2024 12:53:43 PM (Electronically Signed)
--- NOTE | 2024-06-09 10:55 | CRLHL7_ITS ---
For Patients: As a result of the Century Cures Act, medical imaging exams and procedure reports are released immediately into your electronic medical record. You may view this report before your referring provider. If you have questions, please contact your health care provider. Indication: headache, jaw pain chills, cough Technique: 3D Pcys-cv-[id number] MR angiogram of the vsokdi-wl-[id number] with 3-dimensional MIP projections were submitted. Comparison: No prior studies available for comparison at this institution. Findings: The visualized first and second order intracranial vessels are unremarkable. Bilateral posterior communicating artery infundibulum. No occlusion/filling defect or acquired arterial stenosis identified. No aneurysm or vascular malformation seen. Impression: No evidence of proximal arterial occlusion, aneurysm, dissection, or vascular malformation. Dictated by Alex Patiño MD @ 06/09/2024 12:52:58 PM (Electronically Signed)
[2024-06-09 10:59] LABS: Basophils Absolute Auto 0.01 K/uL (0.00-0.30); Basophils Percent Auto 0.1 % (0.0-3.0); Hematocrit 38.7 % (33.0-51.0); Hemoglobin* 12.6 gm/dL (12.0-16.0); Immature Granulocytes Abs Auto 0.04 K/uL (0.00-0.30); Immature Granulocytes Pct Auto 0.6 %; Lymphocytes Percent Auto 6.2 % (20-44); Mean Corpuscular HGB Conc 33 gm/dL (32-36); Mean Corpuscular Hemoglobin 31 pg (26-34); Mean Corpuscular Volume 95 fL (80-100); Monocytes Percent Auto 7.1 % (0.0-11.0); Platelet Count* 163 K/uL (140-440); RDW Coefficient of Variation % 12.8 % (11.5-15.5); Red Blood Count 4.06 m/uL (4.00-5.20); White Blood Count* 7.21 K/uL (4.50-11.00)
[2024-06-09 11:01] LABS: Slide Review Reflex No
[2024-06-09 11:16] LABS: Chloride* 101 mmol/L (96-114); Potassium* 3.7 mmol/L (3.6-5.1); Sodium* 133 mmol/L (135-149)
[2024-06-09 11:19] LABS: Creatinine* 0.7 mg/dL (0.5-1.5); Est. Creatinine Clearance* 42.07; Estimated Glomerular Filt Rate 92 ml/min
[2024-06-09 11:20] LABS: Anion Gap 9 mEq/L (7-15); Blood Urea Nitrogen* 11 mg/dL (7-30); Calcium* 9.1 mg/dL (8.4-10.6); Carbon Dioxide* 23 mmol/L (20-32); Glucose* 135 mg/dL (60-115)
[2024-06-09 11:23] LABS: C Reactive Protein* 0.8 mg/dL (0.5-1.0)
--- OUTSIDE RECORDS SUMMARY | 2024-06-09 12:27 | XMS_ITS | Referral Summary ---
Author Organization [facility] Address [address] [place] [address] Care Team Providers Care Nylon Winder Name Role Phone Maryan Gallagher PA-C Primary Care Provider [phone] Allergies Active Allergy Reactions Criticality Noted Date Comments Atorvastatin Muscle Pain (Myalgia) 04/09/2017 Iodinated Contrast Media Anaphylaxis High 10/22/2009 Isosorbide Nitrate Palpitations Low 04/24/2013 Lisinopril Cough 05/30/2016 Pravastatin Muscle Pain (Myalgia) 04/24/2013 Rosuvastatin Other (See Comments) 06/12/2017 Medications simvastatin (ZOCOR) 20 MG tablet Take 1 tablet by mouth at bedtime 3 Active losartan (COZAAR) 100 MG tablet Take 1 tablet by mouth daily 3 Active furosemide (LASIX) 20 MG tablet Take 20 mg by mouth daily 4 Active albuterol (VENTOLIN HFA) 108 (90 Base) MCG/ACT inhaler Inhale 1-2 puffs into the lungs every 4 hours as needed 3 Active HYDROcodone-aceta minophen (NORCO) 5-325 MG tablet Take 1 tablet by mouth 2 times daily as needed 3 Active cholecalciferol 50 MCG (2000 UT) CAPS Take 2,000 Units by mouth daily 4 Active fluticasone (FLONASE) 50 MCG/ACT nasal spray [place] 1-2 sprays in nostril daily as needed 2 Active lidocaine (LIDODERM) 5 % patch Place onto the skin daily as needed 2 Active nitroGLYcerin (NITROSTAT) 0.[address] 0.4 mg under the tongue every 5 minutes as needed 4 Active oxyBUTYnin ER (DITROPAN XL) 10 MG 24 hr tablet Take 1 tablet by mouth daily 3 Active pantoprazole (PROTONIX) 40 MG EC tablet Take 1 tablet by mouth daily as needed 3 Active polyethylene glycol (MIRALAX) 17 GM/Dose powder Take 17 g by mouth daily as needed 3 Active silver sulfADIAZINE (SILVADENE) 1 % external cream Apply topically daily as needed 3 Active tiZANidine (ZANAFLEX) 2 MG tablet Take 2-4 mg by mouth 4 times daily as needed 3 Active traMADol (ULTRAM) 50 MG tablet Take 50-100 mg by mouth 2 times daily 3 Active celecoxib (CELEBREX) 200 MG capsule Take [...] School Help Needed Not on file 08/29 Comments No Sex and Gender Information Value Date Recorded Sex Assigned at Not on file Legal Sex Female 3:13 AM EMAIL MARKETING SPECIALIST Gender Identity Not on file Sexual Orientation Not on file Last Filed Vital Signs Vital Sign Reading Time Taken Comments Blood Pressure 131/72 09/30/2023 7:30 AM EMAIL MARKETING SPECIALIST Pulse 72 09/30/2023 7:30 AM EMAIL MARKETING SPECIALIST Temperature 36.6 ??C (97.8 ??F) 09/30/2023 7:30 AM CS T Respiratory Rate 18 09/30/2023 7:30 AM EMAIL MARKETING SPECIALIST Oxygen Saturation 94% 09/30/2023 7:30 AM EMAIL MARKETING SPECIALIST Inhaled Oxygen Concentration - - Weight 80.6 kg (177 lb 9.6 oz) 09/27/2023 7:04 A M EMAIL MARKETING SPECIALIST Height 153.5 cm (5' 0.43) 09/27/2023 7:04 AM CS T Body Mass Index 34.19 09/27/2023 7:04 AM EMAIL MARKETING SPECIALIST Plan of Treatment Not on file Medical Devices Implanted Type Area Soap Drier Tender Device Identifier Shelf Expiration Date Model / Serial / Lot Implant Bone 0.5-1 M Bland-Tcp Sponge Gran-Collage n Composite - [id number] Implanted:Qt y: 1 on 09/27/2023 by Darrell Denson MD at [facility] Metallic Hardware/An chor N/A: Spine Cervical PRECISION SPINE [id number] 10/10/2027 AMWS-TCP -10 / [id number] / [id number] A Reduction Poly Axial Screws Mid-Top, 4.0mm X 28mm Implanted:Qt y: 2 on 09/27/2023 by Darrell Denson MD at [facility] Metallic Hardware/An chor N/A: Spine Cervical AMW SPINE [id number] [id number] 2022 Laci Spinal Castleloc-S Straight 200x3.5mm [id number] - [id number] Implanted:Qt y: 1 on 09/27/2023 by Darrell Denson MD at [facility] Metallic Hardware/An chor N/A: Spine Cervical AEGIS SPINE [id number] [id number] 2022 Description:Laci cut into two sections 3.5 X 14mm Standard Self Drilling Screws Implanted:Qt y: 6 on 09/27/2023 by Darrell Denson MD at [facility] Metallic Hardware/An chor N/A: Spine Cervical AMW SPINE 37-SD-40 8002 [id number] Plate Bn [id number] Ti Stndaln Vault C Ns Spne Acdf - [id number] Implanted:Qt y: 2 on 09/27/2023 by Darrell Denson MD at [facility] Metallic Hardware/An chor N/A: Spine Cervical PRECISION SPINE 37-PA-42 8002 [id number] 4 Plate Bn [id number] Ti Vault C Spne Crv Ant Stnd 37-Pa-4209 - [id number] Implanted:Qt y: 1 on 09/27/2023 by Darrell Denson MD at [facility] Metallic Hardware/An chor N/A: Spine Cervical PRECISION SPINE 37-PA-42 8002 [id number] 14 X 120 X 8mm 0?? Posterior Cage Implanted:Qt y: 2 on 09/27/2023 by Darrell eDnson MD at [facility] Metallic Hardware/An chor N/A: Spine Cervical AMW SPINE 37-CP-42 8202 [id number] Cage Spnl 14x9mm Vault C 0d 12mm Post Peek-Optm 37-Cp-4209 - [id number] Implanted:Qt y: 1 on 09/27/2023 by Darrell Denson MD at [facility] Metallic Hardware/An chor N/A: Spine Cervical PRECISION SPINE 37-CP-42 8202 [id number] Tap Spinal Lnk 12x3mm [id number] - [id number] Implanted:Qt y: 1 on 09/27/2023 by Darrell Denson MD at [facility] Metallic Hardware/An chor N/A: Spine Cervical AEGIS SPINE [id number] / / Screw Set Castleloc-S M7 Spine Posterior Cervical [id number] - [id number] Implanted:Qt y: 6 on 09/27/2023 by Darrell Denson MD at [facility] Metallic Hardware/An chor N/A: Spine Cervical AEGIS SPINE [id number] 2022 Reduction Poly Axial Screws Mid-Top, 4.0mm X 14mm Implanted:Qt y: 4 on 09/27/2023 by Darrell Denson MD at [facility] Metallic Hardware/An chor N/A: Spine Cervical AMW SPINE [id number] 2022 Procedures Procedure Name Priority Date/Time Associated Diagnosis Comments BASIC METABOLIC PANEL Routine 09/30/2023 7:12 AM EMAIL MARKETING SPECIALIST from Last 3 Months or Most Recently Relevant to Health Maintenance Results * (ABNORMAL) Basic metabolic panel (09/30/2023 7:12 AM EMAIL MARKETING SPECIALIST) Sodium 133(L) 135 - 145 mmol/L 09/30/2023 8:05 AM EMAIL MARKETING SPECIALIST [facility] Comment:Reference intervals for this test were updated on 05/07/2023 to more accurately reflect our healthy population. There may be differences in the flagging of prior results with similar values performed with this method. Interpretation of those prior results can be made in the context of the updated reference intervals. Potassium 3.6 3.4 - 5.3 mmol/L 09/30/2023 8:05 AM [facility] Chloride 96(L) 98 - 107 mmol/L 09/30/2023 8:05 AM [facility] Carbon Dioxide (CO2) 25 22 - 29 mmol/L 09/30/2023 8:05 AM [facility] Anion Gap 12 7 - 15 mmol/L 09/30/2023 8:05 AM [facility] Urea Nitrogen 15.4 8.0 - 23.0 mg/dL 09/30/2023 8:05 AM [facility] Creatinine 0.71 0.51 - 0.95 mg/dL 09/30/2023 8:05 AM [facility] GFR Estimate 90 >60 mL/min/1. 73m2 09/30/2023 8:05 AM [facility] Calcium 9.3 8.8 - 10.2 mg/dL 09/30/2023 8:05 AM [facility] Glucose 104(H) 70 - 99 mg/dL 09/30/2023 8:05 AM [facility] Blood STRUCTURE OF RIGHT HAND / Unknown Venipuncture / Unknown 09/30/2023 7:12 AM EMAIL MARKETING SPECIALIST 09/30/2023 7:42 AM [facility] Charlene Garcia PA-C LAB - BLOOD ORDERABLES Final Result LABORATORY [facility] [address] Lab (1st floor, no room number) [place] [address], [facility] [phone] from Last 3 Months or Most Recently Relevant to Health Maintenance Insurance [address] [place] [address] MEDICARE [facility] MEDICARE [facility] Advance Directives For more information, please contact: [phone] * Full Code (Latest Code Status on File) Date Activated Date Inactivated Comments 09/27/2023 8:59 PM 09/30/2023 12:50 PM All basic a nd advanced life-sustaining interventions are performed as appropriate Question Answer Comments Code status determined by: Discussion with patie nt/ legal decision maker Care Teams Nylon Winder Relationship Specialty Start Date End Date Maryan Gallagher PA-C [address] [place] [address] PCP - General 09/18/23
--- OUTSIDE RECORDS SUMMARY | 2024-06-09 12:27 | XMS_ITS | Clinical Summary ---
Author Organization [facility] Address [address] [place] [address] Care Team Providers Care Speech And Language Assistant Name Role Phone Maryan Gallagher PA-C Primary Care Provider [phone] Allergies Active Allergy Reactions Criticality Noted Date [...] Active fluticasone (FLONASE) 50 MCG/ACT nasal spray [place] 1-2 sprays in nostril daily as needed [...] on file Legal Sex Female 3:13 AM ELECTRICIAN SOUND Gender Identity Not on file Sexual Orientation Not on file Last Filed Vital Signs Vital Sign Reading Time Taken Comments Blood Pressure 131/72 09/30/2023 7:30 AM ELECTRICIAN SOUND Pulse 72 09/30/2023 7:30 AM ELECTRICIAN SOUND Temperature 36.6 ??C (97.8 ??F) 09/30/2023 7:30 AM CS T Respiratory Rate 18 09/30/2023 7:30 AM ELECTRICIAN SOUND Oxygen Saturation 94% 09/30/2023 7:30 AM ELECTRICIAN SOUND Inhaled Oxygen Concentration - - Weight 80.6 kg (177 lb 9.6 oz) 09/27/2023 7:04 A M ELECTRICIAN SOUND Height 153.5 cm (5' 0.43) 09/27/2023 7:04 AM CS T Body Mass Index 34.19 09/27/2023 7:04 AM ELECTRICIAN SOUND Plan of Treatment Health Maintenance Due Date [...] WELLNESS VISIT 03/04/2024 03/04/2023 COVID-19 Vaccine ( season) 2024 01/12/2021, 12/22/2020 INFLUENZA VACCINE (#1) [...] this topic Medical Devices Implanted Type Area Card Clothier Device Identifier Shelf Expiration Date Model / Serial / Lot Implant Bone 0.5-1 M Bland-Tcp Sponge Gran-Collage n Composite - [id number] Implanted:Qt y: 1 on 09/27/2023 by Darrell Denson MD at [facility] Metallic Hardware/An chor N/A: Spine Cervical PRECISION SPINE [id number] 10/10/2027 AMWS-TCP -10 / [id number] / [id number] A Reduction Poly Axial Screws Mid-Top, 4.0mm X 28mm Implanted:Qt y: 2 on 09/27/2023 by Darrell Denson MD at [facility] Metallic Hardware/An chor N/A: Spine Cervical AMW SPINE [id number] 2022 Laci Spinal Castleloc-S Straight 200x3.5mm [id number] - [id number] Implanted:Qt y: 1 on 09/27/2023 by Darrell Denson MD at [facility] Metallic Hardware/An chor N/A: Spine Cervical AEGIS SPINE [id number] 2022 Description:Laci cut into two sections 3.5 X 14mm Standard Self Drilling Screws Implanted:Qt y: 6 on 09/27/2023 by Darrell Denson MD at [facility] Metallic Hardware/An chor N/A: Spine Cervical AMW SPINE 37-SD-40 8002 [id number] Plate Bn [id number] Ti Stndaln Vault C Ns Spne Acdf - [id number] Implanted:Qt y: 2 on 09/27/2023 by Darrell Denson MD at [facility] Metallic Hardware/An chor N/A: Spine Cervical PRECISION SPINE 37-PA-42 8002 [id number] Plate Bn [id number] Ti Vault C Spne Crv Ant Stnd 37-Pa-4209 - [id number] Implanted:Qt y: 1 on 09/27/2023 by Darrell Denson MD at [facility] Metallic Hardware/An chor N/A: Spine Cervical PRECISION SPINE 37-PA-42 8002 [id number] 14 X 120 X 8mm 0?? Posterior Cage Implanted:Qt y: 2 on 09/27/2023 by Darrell Denson MD at [facility] Metallic Hardware/An chor N/A: Spine Cervical AMW SPINE 37-CP-42 8202 [id number] Cage Spnl 14x9mm Vault C 0d 12mm Post Peek-Optm 37-Cp-4209 - [id number] Implanted:Qt y: 1 on 09/27/2023 by Darrell Denson MD at [facility] Metallic Hardware/An chor N/A: Spine Cervical PRECISION SPINE 37-CP-42 8202 [id number] Tap Spinal Lnk 12x3mm [id number] - [id number] Implanted:Qt y: 1 on 09/27/2023 by Darrell Denson MD at [facility] Metallic Hardware/An chor N/A: Spine Cervical AEGIS SPINE [id number] / / Screw Set Castleloc-S M7 Spine Posterior Cervical [id number] - [id number] Implanted:Qt y: 6 on 09/27/2023 by Darrell Denson MD at [facility] Metallic Hardware/An chor N/A: Spine Cervical AEGIS SPINE [id number] 2022 Reduction Poly Axial Screws Mid-Top, 4.0mm X 14mm Implanted:Qt y: 4 on 09/27/2023 by Darrell Denson MD at [facility] Metallic Hardware/An chor N/A: Spine Cervical AMW SPINE [id number] 2022 Procedures Procedure Name Priority Date/Time Associated Diagnosis Comments BASIC METABOLIC PANEL Routine 09/30/2023 7:12 AM ELECTRICIAN SOUND from Last 3 Months or Most Recently Relevant to Health Maintenance Results * (ABNORMAL) Basic metabolic panel (09/30/2023 7:12 AM ELECTRICIAN SOUND) Sodium 133(L) 135 - 145 mmol/L 09/30/2023 8:05 AM ELECTRICIAN SOUND [facility] Comment:Reference intervals for this test were updated on 05/07/2023 to more accurately reflect our healthy population. There may be differences in the flagging of prior results with similar values performed with this method. Interpretation of those prior results can be made in the context of the updated reference intervals. Potassium 3.6 3.4 - 5.3 mmol/L 09/30/2023 8:05 AM ELECTRICIAN SOUND [facility] Chloride 96(L) 98 - 107 mmol/L 09/30/2023 8:05 AM [facility] Carbon Dioxide (CO2) 25 22 - 29 mmol/L 09/30/2023 8:05 AM [facility] Anion Gap 12 7 - 15 mmol/L 09/30/2023 8:05 AM [facility] Urea Nitrogen 15.4 8.0 - 23.0 mg/dL 09/30/2023 8:05 AM [facility] Creatinine 0.71 0.51 - 0.95 mg/dL 09/30/2023 8:05 AM [facility] GFR Estimate 90 >60 mL/min/1. 73m2 09/30/2023 8:05 AM [facility] Calcium 9.3 8.8 - 10.2 mg/dL 09/30/2023 8:05 AM [facility] Glucose 104(H) 70 - 99 mg/dL 09/30/2023 8:05 AM [facility] Blood STRUCTURE OF RIGHT HAND / Unknown Venipuncture / Unknown 09/30/2023 7:12 AM ELECTRICIAN SOUND 09/30/2023 7:42 AM [facility] Charlene Garcia PA-C LAB - BLOOD ORDERABLES Final Result LABORATORY [facility] [address] [facility] (1st floor, no room number) [place] [address], [facility] [phone] from Last 3 Months or Most Recently Relevant to Health Maintenance Insurance MEDICARE [facility] MEDICARE [facility] Advance Directives For more information, please contact: [phone] * Full Code (Latest Code Status on File) Date Activated Date Inactivated Comments 09/27/2023 8:59 PM 09/30/2023 12:50 PM All basic a nd advanced life-sustaining interventions are performed as appropriate Question Answer Comments Code status determined by: Discussion with phyllise nt/ legal decision maker Care Teams Speech And Language Assistant Relationship Specialty Start Date End Date Maryan Gallagher PA-C [address] [place] [address] [facility] - General 09/18/23
--- OUTSIDE RECORDS SUMMARY | 2024-06-09 12:27 | XMS_ITS | Clinical Summary ---
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 Max acetaminophen dose: 4000mg in 24 hrs. 30 Tablet 4 Active traMADoL (ULTRAM) 50 mg tabletIndications: Chronic pain [...] 05/11/20 24 Discontinu ed(Reorder (E-cancel not sent)) HYDROcodone-acetam inophen (7.5-325 mg/tablet)Indicati ons:Accidental fall, initial encounter Take 1 Tablet by mouth 3 times daily if needed for Pain. Max acetaminophen dose: 4000mg in 24 hrs. 30 Tablet 4 05/22/20 24 Discontinu ed(Reorder (E-cancel not sent)) Active [...] Overview (02/26/2018): 2012 S/p stent placement in [place] 01/2018 angiogram: patent LAD stent, 40% stenosis [...] 06/26/2016 03/11/2017 Chest pain on breathing 06/26/2016 1111/2019 Toxic diffuse goiter 01/16/2003 021 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/2019): Graves' Disease Encounters Date Type Department Care Team Description 06/09/2024 10:00 AM CDT Ancillary Procedure [facility] [address] [place] [address] Arrived 06/09/2024 9:05 AM CDT Office Visit [facility] [address] [place] [address] Madeleine Fortune PA Headache 06/09/2024 Travel 06/02/2024 11:30 AM CDT Preop Visit [facility] [address] [place] [address] Maryan Gallagher PA Preoperative Exam (06/12/2437-OLD-Rnkiaqf lle-left shoulder surgery- ) 06/02/2024 Travel 05/30/2024 Telephone [facility] [address] [facility] [place] [address] Maryan Gallagher PA Appointment Request (Pre op) 05/25/2024 Orders Only [facility] [address] [place] [address] Maryan Gallagher PA 1 scan: (1-Ord) AFUA NIXON, MR LT SHOULDER, 05/21/2024 05/22/2024 12:50 PM CDT Office Visit [facility] [address] [place] [address] Maryan Gallagher PA Follow Up (Had MRI yesterday-shoulder/a rm still hurts bad-can't sleep-limited ROM) 05/22/2024 Travel 05/19/2024 Telephone [facility] [address] [place] [address] Maryan Gallagher PA Appointment Request (PAIN) 05/11/2024 11:30 AM CDT Office Visit [facility] [address] [place] [address] Maryan Gallagher PA Follow Up (Left shoulder); Ear Problem (Feels like she can't hear) 05/11/2024 Travel 05/04/2024 Telephone [facility] [address] [place] [address] Maryan Gallagher PA Pain (med) 04/30/2024 11:30 AM CDT Ancillary Procedure [address] [address] 04/30/2024 11:15 AM CDT Ancillary Procedure [address] [address] 04/30/2024 11:00 AM CDT Ancillary Procedure [address] [address] 04/30/2024 10:30 AM CDT Office Visit [facility] [address] [place] [address] Maryan Gallagher PA Fall (A week and a half ago she fell face down-tripped on a rug-then yesterday afternoon she did it again only this time when she tried to catch herself her left arm 'folded' and now has swelling in left wrist and forearm and limited ROM in left shoulder-also left side pain) 04/30/2024 Travel 03/23/2024 Refill [facility] [address] [place], [place] [id number] Maryan Gallagher PA Refill Request (Simvastatin) from Last 3 Months Immunizations Name Administration Dates Next Due COVID-19 vaccine (GoCoin 30mcg/0.3mL) P F, MDV 01/12/2021,12/22/2020 Influenza Virus, [...] 1 03/04/2023 Social Connections Answer Date Recorded Do you often feel lonely or isolated from those around you? 0 11/12/2023 Financial Resource Strain Answer Date R ecorded Difficulty of Paying Living Expenses 3 11/12/2023 Difficulty of Paying Living Expenses Not on file 11/12/2023 Food Insecurity Answer Date Recorded Do you worry your food will run out before you are able to buy more? 1 11/12/2023 Transportation Needs Answer Date Record ed Does lack of transportation keep you from medica l appointments? 1 11/12/2023 Does lack of transportation keep you from work, meetings or getting things that you need? 1 11/12/2023 Housing Stability Answer Date Recorded What is your housing situation today? 2 11/12/2023 Sex and Gender Information Value [...] Sign Reading Time Taken Comments Blood Pressure 176/92 06/09/2024 9:22 AM CDT Pulse 106 06/09/2024 9:22 AM CDT Temperature 37.2 ??C (98.9 ??F) 06/09/2024 9:01 AM CD T Respiratory Rate 14 07/04/2022 9:00 AM TRAIN BRAKER Oxygen Saturation 94% 06/09/2024 9:22 AM CDT Inhaled Oxygen Concentration - - Weight 69.9 kg (154 lb) 06/02/2024 11:01 AM CDT Height 155.6 cm (5' 1.26) 06/02/2024 11:01 AM C DT Body Mass Index 28.85 06/02/2024 11:01 AM CDT Plan of Treatment Health Maintenance Due Date Last Done Comments DEXA/DXA scan for age 65+ 2017 Zoster (shingles) series for age 50+ (2 of 2) 01/06/2019 11/11/2018 Mammogram for age 45-75 08/23/2023 08/23/19, 08/16/2022, 12/09/2017 Medicare Wellness for age 65+ 03/04/2024 03/04/2023, 02/26/2018 Depression screening for age 12+ 03/08/2024 03/08/2023, 03/04/2023, 12/21/2020, Additional history exists COVID-19 vaccine series ( season) 2024 01/12/2021, 12/22/2020 Influenza for age 65+ 04/12/2024 06/09/2018 , 06/01/2016, 06/09/2011, Additional history exists BMI (ht and wt on same day) for age 18+ 06/02/2025 06/02/2024, 09/12/2023, 03/04/2023, Additional history exists Lipids for age 45-75 03/04/2028 03/04/2023, 10/16/2021, 03/21/2020, Additional history exists Tetanus booster 11/11/2028 11/11/2018, 06/03/2006, 01/17/2006, Additional history exists Colonoscopy through age 75 02/11/2033 02/11/2023 Hepatitis C screening for ag e 18-79 Completed 02/26/2018 Pneumococcal series for age 65+ Completed 8, 04/09/2017 Tdap Completed 11/11/2018 Medical Devices Implanted Type Area Engineer Technical Staff Device Identifier Shelf Expiration Date Model / Serial / Lot [id number] one Matrix 0.5cc Progenix Putty Dbm Implanted:Qty: 1 on 06/04/2018 by Jhoan Bowens MD at [facility] Explanted:at [facility] (Quantity not on file) N/A: Spine Medtronic Spine/Ortho 08/19/2019 [id number] / [id number] / [id number] Spinal Graft Block Manuelito Implanted:Qty: 1 on 06/04/2018 by Jhoan Bowens MD at [facility] Explanted:at [facility] (Quantity not on file) N/A: Spine Medtronic Spine/Ortho 12/25/[id number] / [id number] / Screw Cerv Ant 3.5x13mm Zevo Variable Slf Drilling - [id number] Implanted:Qty: 4 on 06/04/2018 by Jhoan Bowens MD at [facility] N/A: Spine Medtronic Spine/Ortho [id number] / / Plate Zevo 23mm 1 Lvl Implanted:Qty: 1 on 06/04/2018 by Jhoan Bowens MD at [facility] N/A: Spine [id number] / / Description:PLATE ZEVO 23MM 1 LVL Procedures Procedure Name Priority Date/Time Associated Diagnosis Comments CT HEAD BRAIN WO STAT 06/09/2024 9:18 AM CDT Headache syndrome BASIC METABOLIC PANEL Routine 06/02/2024 11:34 AM CDT Pre-op exam HEMOGLOBIN Routine 06/02/2024 11:34 AM CDT Pre-op exam MR SHOULDER LEFT WO Routine 05/21/2024 1 2:00 AM CDT Accidental fall, initial encounter Weakness of left shoulder Acute pain of left shoulder XR SPINE CERVICAL 3 VIEWS Routine 04/30/2024 [...] ADDL VIEWS LEFT UGO 08/23/2022 9:38 AM TRAIN BRAKER Abnormal mammogram ANTI HCV Routine 02/26/2018 9:14 AM CDT Need for hepatitis C screening test from Last 3 Months or Most Recently Relevant to Health Maintenance Results * CT HEAD BRAIN WO (06/09/2024 9:18 AM CDT) Anatomical Region Laterality Modality HEAD, BRAIN Computed Tomogra phy 06/09/2024 9:31 AM CDT Impressions 06/09/2024 9:31 AM CDT Chronic changes without acute intracranial abnormality. Please note that all CT scans at this facility use dose modulation, iterative reconstruction, and/or weight-based dosing when appropriate to reduce radiation dose to as low as reasonably achievable. Dictated by Ramona Bush MD @ 06/09/2024 9:31:51 AM (Electronically Signed) Narrative 06/09/2024 9:31 AM CDT For Patients: ??As a result of the Cures Act, medical imaging exams and procedure reports are released immediately into your electronic medical record. ??You may view this report before your referring provider. ??If you have questions, please contact your health care provider. INDICATION: Headache. TECHNIQUE: CT head without contrast. COMPARISON: None. FINDINGS: Mild generalized parenchymal atrophy. Periventricular and deep minimal patchy white matter hypodensities are nonspecific, likely related to chronic microvascular ischemic changes. No acute infarct, hemorrhage or mass effect. No midline shift. The ventricles are of normal caliber. Skull base and calvarium: Minimal mucosal thickening of the ethmoidal air cells. Rest of the paranasal sinuses are well pneumatized. No calvarial fracture. The visualized orbits are grossly unremarkable. ?? Procedure Note Ramona Bush MD - 06/09/2024 For Patients: As a result of the Cures Act, medical imagingexams and procedure reports are released immediately into your electronicmedical record. You may view this report before your referring provider.If you have questions, please contact your health care provider. INDICATION: Headache. TECHNIQUE: CT head without contrast. COMPARISON: None. FINDINGS: Mild generalized parenchymal atrophy. Periventricular and deep minimalpatchy white matter hypodensities are nonspecific, likely related tochronic microvascular ischemic changes. No acute infarct, hemorrhage ormass effect. No midline shift. The ventricles are of normal caliber. Skull base and calvarium: Minimal mucosal thickening of the ethmoidal aircells. Rest of the paranasal sinuses are well pneumatized. No calvarialfracture. The visualized orbits are grossly unremarkable. IMPRESSION: Chronic changes without acute intracranial abnormality. Please note that all CT scans at this facility use dose modulation,iterative reconstruction, and/or weight-based dosing when appropriate toreduce radiation dose to as low as reasonably achievable. Dictated by Ramona Bsuh MD @ 06/09/2024 9:31:51 AM (Electronically Signed) Madeleine ARNDT CT * HEMOGLOBIN (06/02/2024 11:34 AM CDT) Pathologist [facility] HEMOGLOBIN 12.1 11.7 - 15.5 g/dL [facility] Blood BLOOD SPECIMEN / Unknown 06/02/2024 11:34 AM CDT 06/02/2024 11:34 AM CDT Maryan ARNDT HEMATOLOGY [facility] [place] [facility] [address] [place] [address], [facility] [address] [place] [address] * BASIC METABOLIC PANEL (06/02/2024 11:34 AM CDT) Pathologist [facility] GLUCOSE 96 65 - 99 mg/dL [facility] Comment: ? Fasting reference interval UREA NITROGEN (BUN) 11 7 - 25 mg/dL [facility] CREATININE 0.84 0.60 - 1.00 mg/dL [facility] EGFR 74 > OR = 60 mL/min/1. 73m2 [facility] BUN/CREATININE RATIO SEE NOTE: (calc) [facility] Comment: ?? Not Reported: BUN and Creatinine are within ?? reference range. ? SODIUM 141 135 - 146 mmol/L [facility] POTASSIUM 4.3 3.5 - 5.3 mmol/L [facility] CHLORIDE 106 98 - 110 mmol/L [facility] CARBON DIOXIDE 27 20 - 32 mmol/L [facility] ELECTROLYTE BALANCE 8 7 - 17 mmol/L (calc) [facility] CALCIUM 9.2 8.6 - 10.4 mg/dL [facility] Blood BLOOD SPECIMEN / Unknown 06/02/2024 11:34 AM CDT 06/02/2024 11:34 AM CDT Maryan ARNDT CHEMISTRY [facility] [address] [place] [address], [facility] [address] [place] [address] * MR SHOULDER LEFT WO (05/21/2024 12:00 AM CDT) Anatomical Region Laterality Modality SHOULDER L Magnetic Resonan ce Maryan ARNDT MR * XR SPINE CERVICAL 3 VIEWS (04/30/2024 [...] @ 04/30/2024 3:45:08 PM (Electronically Signed) Maryan ARNDT GENERAL IMAGING * XR RIBS LEFT AND [...] - 199 mg/dL 03/04/2023 5:48 PM CDT [facility] Comment: Cholesterol, Total Reference Ranges Desirable <200 mg/dL Borderline 200-239 mg/dL High >=240 mg/dL TRIGLYCERIDES 192(H) <150 mg/dL 03/04/2023 5:48 PM CDT [facility] HDL CHOLESTEROL 49 >40 mg/dL 5:48 PM CDT [facility] NON-HDL CHOLESTEROL 103 <145 mg/dl 03/04/2023 5:48 PM CDT [facility] CHOL/HDL RATIO 3.10 <4.50 03/04/2023 5:48 PM CDT [facility] LDL CHOLESTEROL 65 <=130 mg/dL 03/04/2023 5:48 PM CDT [facility] VLDL CHOLESTEROL 38(H) <=30 mg/dL 03/04/2023 5:48 PM CDT [facility] PROVIDER ORDERED STATUS RANDOM 03/04/2023 5:48 PM CDT [facility] Blood BLOOD SPECIMEN / Unknown Venipuncture / Unknown 03/04/2023 9:58 AM CDT 03/04/2023 10:01 AM CDT Maryan ARNDT CHEMISTRY [facility] [address] [place] [address], * SCAN-COLONOSCOPY (02/11/2023 7:30 AM CDT) Narrative Procedure Note Don Loya MBBS - 02/11/2023 7:19 AM CDT [facility] [address], [address], [place] [address] Patient Name: Mally Foster Gender: Female Exam Date: 02/11/2023 Visit Number: [id number] Age: 72 Years Date of : 1950 Attending MD: Don Loya MD Medical Record#: [id number] Procedure: Colonoscopy Indications: Previous adenomatous polyp(s) Constipation Referring MD: Referral Self Primary MD: Maryan RAMOS Medications: Admitting Medications: 0.9% Normal Saline at [...] Referring MD: Referral Self Primary MD: Maryan RAMOS Medications: Admitting Medication: 0.9% Normal Saline at [...] by: Juan Carlos Panchal MD Interpreted at [facility], [address] [place] [address] Orders Instruction(s)/Education: Instruction/Education Timeframe Assessment Colon Cancer Prevention R68.81 Hemorrhoids (External) R68.81 High Fiber Diet K59.04 _Electronically signed by: Don Loya MD 02/11/2023 cc: Maryan Gallagher PAC Don PAYNE OTHER * XR MAMMO LINNEA UNI ADDL VIEWS LEFT (08/23/2022 9:38 AM TRAIN BRAKER) Anatomical Region Laterality Modality BREASTS, Breast Left Mammography , Other Impressions 08/23/2022 1:10 PM TRAIN BRAKER Simple cyst and benign-appearing lymph node upper outer quadrant LEFT breast and LEFT axilla. RECOMMENDATION: Annual screening. Results and recommendations were discussed with the patient at the time of the exam. BI-RADS Category 2: Benign Dictated by: Ehsan Boss MD @08/23/2022 10:42:50 AM Pediatric and Body Radiology [email or web address] PATIENTS: You will also receive a letter with your examination results in an easy to read format. ??If you have questions about your results, please contact your referring provider. Narrative 08/23/2022 1:10 PM TRAIN BRAKER For Patients: As a result of the [...] mm. Sonographically benign-appearing axillary lymph node. Maryan ARNDT MAMMO * ANTI HCV [36744.2] (02/26/2018 9:14 AM CDT) HEPATITIS C ANTIBODY Non-React britta Non-React britta 02/26/2018 5:05 PM CDT [facility] [employer] [facility] Comment:Antibodies to HCV no t detected; does not exclude the possibility of exposure to HCV. Blood BLOOD SPECIMEN / Unknown Venipuncture / Unknown 02/26/2018 9:14 AM CDT 02/26/2018 9:14 AM CDT Yadi Dahl MD SEND OUTS [facility] [address] [place] [address], [place] from Last 3 Months or Most [...] Code Status Discussion: Not Discussed Care Teams Manager [employer] Relationship Specialty Start Date End Date Maryan Gallagher PA [address] [place] [address] PCP - General Physician Waste Cotton Cleaner 03/04/23 Reno Strong MD Neurology Neurology 10/24/17
[2024-06-09] MEDS: KETAMINE 50 MG/0.5 ML 20 MG in 0.9 % SODIUM CHLORIDE 100 ml 100 ML 200.4 MG IVPB (12:32)
--- NOTE | 2024-06-09 12:47 | ED.GENADULT ---
HPI - General Adult General Date Seen: 06/09/24 Chief complaint: Headache/Migraine Stated complaint: severe headache coming from [facility] Time Seen by Provider: 06/09/24 10:23 Source: patient, RN notes reviewed, old records reviewed and other Mode of arrival: ambulatory Limitations: no limitations History of Present Illness HPI narrative: Patient is a 74-year-old woman who says she was awakened at 1:00 a.m. in the morning with a severe headache which is frontal and not associated with photophobia, nausea, vomiting, neurologic changes, fever, rashes, or other acute symptoms. She has neck pain but had neck surgery earlier in the year and this is unchanged. She was seen at the clinic, had a noncontrast head CT which was negative, done approximately 8 hours after the onset of symptoms. She says that she has a very remote history of migraines but has not had 1 for over 30 years and this feels completely different than prior migraines. Denies any recent trauma. She was admitted to the hospital here earlier this year with bilateral pulmonary emboli and has been anticoagulated on Eliquis since then. She has an upcoming shoulder surgery on Saturday but has not started to hold her anticoagulation yet. She is here with a friend. She does not smoke or drink. Other medical history and medications reviewed. She came by EMS from the clinic, they gave her fentanyl IV which she says briefly helped just a little bit but seems to be wearing off, headache remains severe. Related Data Home Medications ?Medication ?Instructions ?Recorded ?Confirmed losartan 100 mg tablet 100 mg PO DAILY 05/04/22 10/22/23 nitroglycerin 0.4 mg sublingual 0.4 mg sublingual Q5M PRN chest 05/04/22 10/22/23 tablet pain pantoprazole 40 mg tablet,delayed 40 mg PO DAILY PRN 05/04/22 10/22/23 release simvastatin 20 mg tablet 20 mg PO HS 05/04/22 10/22/23 tramadol 50 mg tablet 50 mg PO Q6H PRN 07/17/22 10/22/23 acetaminophen 500 mg tablet 500 - 1,000 mg PO Q6H PRN 10/22/23 10/22/23 albuterol sulfate 90 mcg/actuation 1 - 2 puff inhalation Q4H PRN 03/12/24 03/12/24 aerosol inhaler (Ventolin HFA) wheezing furosemide 20 mg tablet 20 mg PO DAILY PRN edema 10/22/23 10/22/23 hydrocodone 5 mg-acetaminophen 325 1 tab PO BID PRN severe pain 10/22/23 10/22/23 mg tablet Previous Rx's ?Medication ?Instructions ?Recorded apixaban 5 mg tablet (Eliquis) 10 mg (2 x 5 mg) PO BID #90 tabs 10/24/23 Allergies Allergy/AdvReac Type Severity Reaction Status Date / Time atorvastatin Allergy Verified 10/22/23 14:51 Iodinated Contrast Media Allergy Verified 10/22/23 14:51 isosorbide Allergy Verified 10/22/23 14:51 lisinopril Allergy Verified 10/22/23 14:51 Review of Systems Status of ROS: Reports: 10 or more systems reviewed and unremarkable except as noted in History and below 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 ?M23.304 - Other meniscus derangements, unspecified medial meniscus, left knee (ICD-10) Osteoarthritis of knees, bilateral ?M17.0 - Bilateral primary osteoarthritis of knee (ICD-10) Hiatal hernia ?K44.9 - Diaphragmatic hernia without obstruction or gangrene (ICD-10) Hypertension ?I10 - Essential (primary) hypertension (ICD-10) High cholesterol ?E78.00 - Pure hypercholesterolemia, unspecified (ICD-10) Surgical History Status post Robson fundoplication ?Z98.890 - Other specified postprocedural states (ICD-10) S/P cholecystectomy ?Z90.49 - Acquired absence of other specified parts of digestive tract (ICD-10) H/O hernia repair ?Z98.890 - Other specified postprocedural states (ICD-10) ?Z87.19 - Personal history of other diseases of the digestive system (ICD-10) H/O heart artery stent ?Z95.5 - Presence of coronary angioplasty implant and graft (ICD-10) Social History Narrative: Lives in [place]. Son Severiano would be MDM if needed. Nonsmoker, rare ETOH. Requests Full Code status for one try, does not desire prolonged resuscitation attempts. What is your current living situation?: I presently have a place to live Problems where you live: no known problems Problems where you live details: N/A In the past 12 months, utilities in danger of being shut off: no In past 12 months, lack of transportation kept you from medical appts, meetings, work, or getting things needed for daily living: no In the past 12 mos, have been you worried that your food would run out before you had money to buy more?: sometimes true In the past 12 mos, the food you bought just didn't last and you didn't have money to buy more?: sometimes true Highest level of school completed/degree received: 9th grade Smoking Status: Never smoker Do you use any of these nicotine containing products: None How often do you have a drink containing alcohol: never AUDIT-C Alcohol total score: 0 Non-prescribed substance use: denies use Caffeine: Yes (1-2 weekly) How often does anyone, including family, friends and others, physically hurt you: never How often does anyone, including family, friends and others, insult or talk down to you: never How often does anyone, including family, friends and others, threaten you with harm: never How often does anyone, including family, friends and others, scream or curse at you: never service: No Exam Narrative: Exam Narrative: Vital signs as noted above. In general, an alert, well-appearing patient. Nontoxic in appearance. Head: Normocephalic, atraumatic. Eyes: Pupils are equal reactive. Extraocular movements are full. Conjunctivae are normal. ENT: Mucous membranes are moist. Throat is normal. Neck: Supple without lymphadenopathy. Heart: Regular rate and rhythm. No murmur or rub. Lungs: Clear bilaterally. No increased work of breathing, crackles or wheezes. Abdomen: Soft and nontender. No organomegaly. Extremities: Well perfused. No edema. No calf tenderness. Pulses intact. Neurologic: Patient is alert and oriented to person and place. Speech is fluent. Face is symmetric. Moves all extremities equally. Affect: Normal. Skin: Warm and dry. Well perfused. Const: Vital Signs, click to edit/add: Vital Signs - 24 hr 06/09/24 10:17 06/09/24 11:06 06/09/24 12:33 Temperature 98.3 F Pulse Rate 88 83 Pulse Rate [Pulse Oximeter] 92 Respiratory Rate 20 Blood Pressure Blood Pressure [Ri ght Upper Arm] 188/72 H Pulse Oximetry 97 99 99 Oxygen Delivery Me thod Room Air 06/09/24 12:38 06/09/24 12:39 06/09/24 12:45 Temperature Pulse Rate 88 89 93 Pulse Rate [Pulse Oximeter] Respiratory Rate Blood Pressure 173/82 H Blood Pressure [Ri ght Upper Arm] Pulse Oximetry 99 100 95 Oxygen Delivery Me thod 06/09/24 13:00 06/09/24 13:02 06/09/24 13:15 Temperature Pulse Rate 99 94 98 Pulse Rate [Pulse Oximeter] Respiratory Rate Blood Pressure 194/97 H Blood Pressure [Ri ght Upper Arm] Pulse Oximetry 99 97 99 Oxygen Delivery Me thod 06/09/24 13:30 06/09/24 13:31 06/09/24 13:32 Temperature Pulse Rate 98 96 97 Pulse Rate [Pulse Oximeter] Respiratory Rate Blood Pressure 187/115 H 181/103 H Blood Pressure [Ri ght Upper Arm] Pulse Oximetry 97 98 98 Oxygen Delivery Me thod 06/09/24 13:45 06/09/24 14:05 Temperature Pulse Rate 97 Pulse Rate [Pulse Oximeter] Respiratory Rate 18 Blood Pressure Blood Pressure [Ri ght Upper Arm] Pulse Oximetry 97 Oxygen Delivery Me thod Documenting provider has reviewed patient's vital signs: yes Course Course ED Course: I reviewed the CT report from [facility] which was read as chronic changes without acute intracranial abnormality. This was done outside the window of 6 hours after onset of symptoms, I do think she needs additional evaluation to rule out intracranial hemorrhage. I ordered 4 mg of morphine as well as 20 mg of ketamine for her headache, Zofran as well. She has an allergy to CT contrast, so have elected to do an MR angiogram instead, and I think as long as she is getting an MRI woman is well just do an MRI of the brain looking for any other possible contributing factors such as mass, stroke seems unlikely in the absence of any focal neurologic findings. I also did labs, she does not have any meningeal signs or other symptoms that suggest infectious cause for her symptoms. Her white count is normal at 7, she does have a left shift with 86% neutrophils of uncertain significance. Metabolic panel is normal, blood sugar 135. Lactate 1.0 CRP is 0.8. Headache is improved. MRI/MRA read as normal, linked below. Neurologic exam remains normal. At this time, I do not find evidence of an acute intracranial process, possible migraine. Primary care follow-up for recheck in the next week, return for worsening or new symptoms such as fever, vomiting, neurologic changes. Vital Signs Vital signs: Initial Vital Signs Temperature 98.3 F 06/09/24 10:17 Temperature Source Temporal Artery Scan 06/09/24 10:17 Pulse Rate 92 06/09/24 10:17 Respiratory Rate 20 06/09/24 10:17 Blood Pressure 188/72 H 06/09/24 10:17 Blood Pressure Mean 110 H 06/09/24 10:17 Pulse Oximetry 97 06/09/24 10:17 Oxygen Delivery Method Room Air 06/09/24 10:17 Vital Signs Temperature 98.3 F 06/09/24 10:17 Pulse Rate 92 06/09/24 10:17 Respiratory Rate 20 06/09/24 10:17 Blood Pressure 188/72 H 06/09/24 10:17 Pulse Oximetry 97 06/09/24 10:17 Oxygen Delivery Method Room Air 06/09/24 10:17 Temperature 98.3 F 06/09/24 10:17 Pulse Rate 97 06/09/24 13:45 Respiratory Rate 18 06/09/24 14:05 Blood Pressure 181/103 H 06/09/24 13:32 Pulse Oximetry 97 06/09/24 13:45 Oxygen Delivery Method Room Air 06/09/24 10:17 Medications Administered Medications: Discontinued Medications Generic Name Dose Route Start Last Admin Trade Name Freq PRN Reason Stop Dose Admin Ketamine HCl 20 mg/ Sodium 100.2 mls @ 200.4 mls/hr 06/09/24 10:32 06/09/24 13:30 Chloride IVPB 06/09/24 10:33 Infused ONCE ONE Infusion Morphine Sulfate 4 mg 06/09/24 10:32 06/09/24 10:52 Morphine 4 Mg/Ml Inj IVP 06/09/24 10:33 4 mg ONCE ONE Administration Ondansetron HCl 4 mg 06/09/24 10:32 06/09/24 10:52 Ondansetron 2 Mg/Ml Inj IVP 06/09/24 10:33 4 mg ONCE ONE Administration Medical Decision Making Lab Data Labs: Lab Results 06/09/24 Range/Units 10:53 WBC 7.21 (4.50-11.00) K/uL RBC 4.06 (4.00-5.20) m/uL Hgb 12.6 (12.0-16.0) gm/dL Hct 38.7 (33.0-51.0) % MCV 95 (80-100) fL MCH 31 (26-34) pg MCHC 33 (32-36) gm/dL RDW Coeff of Debra 12.8 (11.5-15.5) % Plt Count 163 (140-440) K/uL Neut % (Auto) 86.0 H (42.0-72.0) % Lymph % (Auto) 6.2 L (20-44) % [place] % (Auto) 7.1 (0.0-11.0) % Eos % (Auto) 0.0 (0.0-7.0) % Baso % (Auto) 0.1 (0.0-3.0) % Neut # (Auto) 6.20 (1.7-7.0) K/uL Lymph # (Auto) 0.40 L (0.90-2.90) K/uL [place] # (Auto) 0.50 (0.00-0.90) K/UL Eos # (Auto) 0.00 (0.00-0.50) K/uL Baso # (Auto) 0.01 (0.00-0.30) K/uL Abs Immat Gran (auto) 0.04 (0.00-0.30) K/uL Imm/Tot Granulo (auto) 0.6 % Sodium 133 L (135-149) mmol/L Potassium 3.7 (3.6-5.1) mmol/L Chloride 101 (96-114) mmol/L Carbon Dioxide 23 (20-32) mmol/L Anion Gap 9 (7-15) mEq/L BUN 11 (7-30) mg/dL Creatinine 0.7 (0.5-1.5) mg/dL Estimated Creat Clear 42.07 Estimated GFR 92 ml/min Glucose 135 H (60-115) mg/dL Lactate 1.0 (0.5-1.9) mmol/L Calcium 9.1 (8.4-10.6) mg/dL C-Reactive Protein 0.8 (0.5-1.0) mg/dL Imaging Data MR Brain: Radiologist's impression: Patient: JOSE JERRY Facility: [facility] Site . Site : 1950 Study: MRI-Head wo/w dotarem cc-06/09/2024 12:33:29 PM Ordering Physician: Maryann Steinberg Final Report: Indication: headache, jaw pain chills, cough Technique: Noncontrast sagittal T1, axial FLAIR, T2 turbo spine echo, and diffusion weighted images. Supplemental post contrast T1 weighted axial and coronal sequences are provided after administration of 13 mL Dotarem gadolinium-based IV contrast. Comparison: No prior studies available for comparison at this institution. Findings: Examination is limited by motion artifact. The ventricles, sulci and gyri are normal size, shape and contour for age. The midline structures are centrally located with no evidence of shift. There are no suspicious intra or extra-axial fluid collections. No evidence of restricted diffusion to suggest acute ischemia. Partially empty sella. The gland, and cerebellar tonsils are unremarkable. Scattered foci of T2 prolongation in the supratentorial white matter are nonspecific. No pathologic susceptibility artifacts. Small focus of suspected artifact at the pontomedullary junction likely due to remote microhemorrhage. Expected flow voids in the cavernous carotids and basilar artery. No abnormal contrast enhancement involving the brain parenchyma, meninges, calvarium or skull base. ACDF and posterior instrumented fusion postop changes in the cervical spine. Impression: 1. No evidence of acute intracranial abnormality. 2. Mild chronic microangiopathic changes. 3. No pathologic enhancement. 4. Examination is limited by motion artifact. MR - Other: Radiologist's impression: Patient: JOSE JERRY Facility: [facility] Site . Site : 1950 Study: MRI-Head Angio wo-06/09/2024 12:35:12 PM Ordering Physician: Maryann Steinberg Final Report: Indication: headache, jaw pain chills, cough Technique: 3D [id number] MR angiogram of the [id number] with 3-dimensional MIP projections were submitted. Comparison: No prior studies available for comparison at this institution. Findings: The visualized first and second order intracranial vessels are unremarkable. Bilateral posterior communicating artery infundibulum. No occlusion/filling defect or acquired arterial stenosis identified. No aneurysm or vascular malformation seen. Impression: No evidence of proximal arterial occlusion, aneurysm, dissection, or vascular malformation. Patient: JOSE JERRY Facility: [facility] Site . Site : 1950 Study: MRI-Neck Angio Angio liver wo/w Dotarem 13 mL-06/09/2024 12:36:39 PM Ordering Physician: Maryann Steinberg Final Report: Indication: severe headache, jaw pain, chills, cough Technique: [id number] and Gadolinium bolus MR angiogram of the neck with 3D MIP reconstructions provided. All measurements are based on NASCET criteria. Postcontrast images obtained after administration of 13 ml Dotarem Gadolinium-based IV contrast. Comparison: No prior studies available for comparison at this institution. Findings: Both carotid systems are unremarkable in the neck. No evidence for hemodynamically significant internal carotid artery stenosis by NASCET criteria. The cervical segments of both vertebral arteries are patent. The visualized portions of the aortic arch, great vessel origins and proximal subclavian arteries are unremarkable. Impression: Unremarkable MRA of the neck as far as visualized. Discharge Plan Discharge Clinical Impression: Headache Patient Disposition: Home, Self-Care Condition: Improved Instructions: Acute Headache (DC) Additional Instructions: Tylenol as needed. Primary care follow-up if not improving over the next couple of days. Your CT scan, MRI and MR angiogram are all reassuring. For new symptoms such as fevers, chills, vomiting, unusual rashes etcetera, return to the ER at any time. Prescriptions: No Action tramadol 50 mg tablet 50 mg PO Q6H PRN Patient Comments: TAKE 1 TABLET (50 MG) BY MOUTH EVERY 6 HOURS IF NEEDED FOR PAIN. acetaminophen 500 mg tablet 500 - 1,000 mg PO Q6H PRN hydrocodone-acetaminophen 5-325 mg tablet 1 tab PO BID PRN (Reason: severe pain) furosemide 20 mg tablet 20 mg PO DAILY PRN (Reason: edema) albuterol sulfate [Ventolin HFA] 90 mcg/actuation HFA aerosol inhaler 1 - 2 puff INHALATION Q4H PRN (Reason: wheezing) Eliquis 5 mg Tablet 10 mg PO BID Qty: 90 0RF Rx Instructions: 10mg po bid (10/22-10/28) then 5mg po bid starting 10/30/23 simvastatin 20 mg tablet 20 mg PO HS Patient Comments: TAKE 1 TABLET (20 MG) BY MOUTH AT BEDTIME. losartan 100 mg tablet 100 mg PO DAILY pantoprazole 40 mg tablet,delayed release (DR/EC) 40 mg PO DAILY PRN nitroglycerin 0.4 mg tablet, sublingual 0.4 mg sublingual Q5M PRN (Reason: chest pain) Follow Up/Referrals: Maryan Gallagher PA-C [Primary Care Provider] - Stand Alone Forms: [facility] [place] Info Instructions
== END 2024-06-09 14:07 | disposition home or self-care (01) ==
PROVIDERS: Emergency Provider Emergency Medicine; PCP Physician Assistant
DX: R55 Syncope and collapse (principal); E86.0 Dehydration
CPT/HCPCS: 36415; 70544; 70549; 70553; 80048; 83605; 85025; 86140; 96365; 96375; 99284; A9575; J2270; J2405; J3490